=== PATIENT | male | born 1950 | race Caucasian/White ===

== ENCOUNTER 2016-07-20 03:52 | Emergency (ER) | payer MEDICARE, OTHER ==
[2016-07-20 05:15] LABS: Hematocrit 34 % (42-52); Hemoglobin 11.2 g/dl (14.0-18.0); Mean Corpuscular HGB Conc 33 g/dl (31-36); Mean Corpuscular Hemoglobin 30 pg (27-31); Mean Corpuscular Volume 90 fL (80-94); Mean Platelet Volume 9 um3 (7.4-10.4); Red Blood Count 3.77 10^6/ul (4.0-5.4); Red Cell Distribution Width 15 % (10.5-15); White Blood Count 6.1 10^3/ul (3.5-10.8)
[2016-07-20] MEDS ORDERED: Ondansetron INJ* 2 MG/ML VIAL IV ONE (05:17)
[2016-07-20] MEDS ORDERED: Morphine INJ* 4 MG/ML 1 ML SYRINGE IV ONE (05:17)
[2016-07-20 05:26] LABS: Albumin 3.8 g/dL (3.2-5.2); BUN/Creatinine Ratio 18.6 (8-20); C Reactive Protein 9.45 mg/L (< 5.00); Calcium 9.4 mg/dL (8.6-10.3); EGFR African American 99.6 (>60); EGFR Non-African American 77.4 (>60); Globulin 2.1 g/dL (2-4); Potassium 3.6 mmol/L (3.5-5.0); Total Bilirubin 0.4 mg/dL (0.2-1.0); Total Protein 5.9 g/dL (6.4-8.9)
[2016-07-20] MEDS ORDERED: NS 0.9% 1000 ML* 1,000 ML IV SCH (05:30)
[2016-07-20] MEDS ORDERED: oxyCODONE/Acetamin 5/325 MG* TAB PO ONE (07:42)
[2016-07-20 08:08] VITALS: BP 138/60
--- NOTE | 2016-07-20 08:12 | RAD ---
Indication: Frontal headaches. CT of the brain was performed without IV contrast. Ventricular structures are midline. No midline shift is noted. The extra-axial spaces are unremarkable. There is no evidence of intracranial mass or hemorrhage. No other high or low density lesions are identified. Mastoid air cells and paranasal sinuses are otherwise unremarkable. IMPRESSION: No intracranial mass or hemorrhage is noted.
--- NOTE | 2016-07-20 08:15 | RAD ---
Indication: Facial injury. CT of the facial bones was obtained in the axial plane. Sagittal and coronal reconstructed images were obtained. The visualized hyoid bone is unremarkable. The mandible demonstrates no fracture. Temporomandibular joints are normal location. The zygomatic arches are intact without evidence of fracture. Pterygoid plates are intact. The maxilla demonstrates no fracture. The orbits demonstrates no fracture. Paranasal sinuses are clear. Bilateral alvaro bullosa is noted. Mucus retention cyst is noted in the right maxillary sinus. IMPRESSION: No fracture of the facial bones are unremarkable. Minimal right mucosal thickening maxillary sinus with bilateral alvaro bullosa.
--- NOTE | 2016-07-20 08:17 | ED ---
Clarice Perez Alok, scribed for Yandel Knight MD on 07/20/16 at 0547 . Headache - HPI Summary HPI Summary: 66 y/o male presents to the ED with a frontal PRASAD located at the left forehead and left cheek bone. Pt states this PRASAD began as a mild PRASAD at 2100 worsening in intensity at 0100. Pt state that at worst his PRASAD registers at a 9 out of 10 in severity though it has improved somewhat since arriving to ED. Pt also notes a left eye ache as well as nausea earlier this evening though not currently. Pt also notes dental pain on the upper left side of his jaw, non-specific to any particular teeth. Pt denies fever, chills, vomit, neck pain, or ear pain. Pt denies trauma. The patient states that he last experienced similar 3 weeks ago following a sinus infection though with much less pain intensity. These symptoms were cleared up with augmentin antibiotics. PMHx includes multiple myeloma and diverticulitis. Pt is alergic to Statins and atovaquone. - History Of Current Complaint Chief Complaint: EDHeadache Stated Complaint: SEVERE HEAD PAIN ABOVE LEFT EYE Time Seen by Provider: 07/20/16 05:08 Hx Obtained From: Patient Onset/Duration: Gradual Onset, Started hours ago, Still Present, Worse Since - 0100 Initially Headache Was: Moderate Currently Pain Is: Current Pain Scale(0-10)= - 9, Moderate Timing: Constant Aggravating Factor: Nothing Allevating Factors: Nothing Associated Signs And Symptoms: Nausea - Allergies/Home Medications Allergies/Adverse Reactions: Allergies Allergy/AdvReac Type Severity Reaction Status Date / Time Shellfish Allergy Allergy Severe Anaphylatic Verified 07/20/16 04:00 Shock Atovaquone [From Mepron] Allergy Intermediate Rash And Verified 07/20/16 04:00 Itching Statins Allergy Intermediate myalgia Verified 07/20/16 04:00 PMH/Surg Hx/FS Hx/Imm Hx Endocrine/Hematology History: Reports: Hx Bone Marrow Disease - MULTIPLE MYELOMA , ON CHEMO Denies: Hx Diabetes Cardiovascular History: Denies: Hx Congestive Heart Failure, Hx Hypertension Respiratory History: Reports: Other Respiratory Problems/Disorders - OCCAS SOB R /T CHEMO (POMALYST) GI History: Reports: Hx Gastroesophageal Reflux Disease - HX OF , NO MEDS, Other GI Disorders - diverticulitis History: Denies: Hx Renal Disease Sensory History: Reports: Hx Contacts or Glasses - CONTACTS WILL WEAR GLASSES ON DOS Denies: Hx Hearing Aid Opthamlomology History: Reports: Hx Contacts or Glasses - CONTACTS WILL WEAR GLASSES ON DOS - Cancer History Cancer Type, Location and Year: 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 stem cell transplant 2014. mj placed in cervical spine. vein removal left leg Hx Anesthesia Reactions: No Infectious Disease History: No Infectious Disease History: Denies: Traveled Outside the [place] in Last 30 Days - Family History Known Family History: Positive: Other - No- Malignant Hypothermia Family History: son - ruptured diverticulitis. FHx of prostate CA (Father) - Social History Occupation: Employed Full-time Lives: With Family Alcohol Use: Rare Alcohol Amount: WINE 1 MONTH Hx Substance Use: No Substance Use Type: Reports: None Hx Tobacco Use: No Smoking Status (MU): Never Smoked Tobacco Have You Smoked in the Last Year: No Review of Systems Negative: Fever, Chills Positive: Other - Left eye ache Positive: Dental Pain - upper left side. Negative: Ear Ache Positive: Nausea. Negative: Vomiting Negative: Other - Neck Gottlieb Positive: Headache Psychological: Normal All Other Systems Reviewed And Are Negative: Yes Physical Exam Triage Information Reviewed: Yes Vital Signs On Initial Exam: Initial Vitals Temp Pulse Resp BP Pulse Ox 97.0 F 63 16 169/78 94 07/20/16 03:53 07/20/16 03:53 07/20/16 03:53 07/20/16 03:53 07/20/16 03:53 Vital Signs Reviewed: Yes Appearance: Positive: Well-Appearing, Pain Distress - Moderate Skin: Positive: Warm, Skin Color Reflects Adequate Perfusion, Dry Head/Face: Positive: Other - Frontal head tenderness left forehead and left side maxillofacial Eyes: Positive: EOMI, [place] ENT: Positive: Normal ENT inspection Neck: Positive: Supple, Nontender Respiratory/Lung Sounds: Positive: Clear to Auscultation, Breath Sounds Present Cardiovascular: Positive: RRR Abdomen Description: Positive: Nontender, Soft Bowel Sounds: Positive: Present Musculoskeletal: Positive: Normal, Strength/ROM Intact Neurological: Positive: Normal, Sensory/Motor Intact, Alert, Oriented to Person Place, Time, Other - Frontal head tenderness left forehead and left side maxillofacial Psychiatric: Positive: Affect/Mood Appropriate - [place] Coma Scale Coma Scale Total: 15 Diagnostics - Vital Signs Vital Signs Temp Pulse Resp BP Pulse Ox 07/20/16 03:55 97.0 F 63 16 169/78 94 07/20/16 03:53 97.0 F 63 16 169 94 - Laboratory Lab Results: Lab Results 07/20/16 07/20/16 07/20/16 Range/Units 05:06 05:06 05:06 WBC 6.1 (3.5-10.8) 10^3/ul RBC 3.77 L (4.0-5.4) 10^6/ul Hgb 11.2 L (14.0-18.0) g/dl Hct 34 L (42-52) % MCV 90 (80-94) fL MCH 30 (27-31) pg MCHC 33 (31-36) g/dl RDW 15 (10.5-15) % Plt Count 142 L (150-450) 10^3/ul MPV 9 (7.4-10.4) um3 Neut % (Auto) 81.8 (38-83) % Lymph % (Auto) 3.6 L (25-47) % [place] % (Auto) 12.9 H (1-9) % Eos % (Auto) 1.7 (0-6) % Baso % (Auto) 0 (0-2) % Absolute Neuts (auto) 5.0 (1.5-7.7) 10^3/ul Absolute Lymphs (auto) 0.2 L (1.0-4.8) 10^3/ul Absolute Monos (auto) 0.8 (0-0.8) 10^3/ul Absolute Eos (auto) 0.1 (0-0.6) 10^3/ul Absolute Basos (auto) 0 (0-0.2) 10^3/ul Absolute Nucleated RBC 0 10^3/ul Nucleated RBC % 0 APTT 26.3 (26.0-36.3) seconds Sodium 135 (133-145) mmol/L Potassium 3.6 (3.5-5.0) mmol/L Chloride 100 L (101-111) mmol/L Carbon Dioxide 27 (22-32) mmol/L Anion Gap 8 (2-11) mmol/L BUN 18 (6-24) mg/dL Creatinine 0.97 (0.67-1.17) mg/dL Est GFR ( Amer) 99.6 (>60) Est GFR (Non-Af Amer) 77.4 (>60) BUN/Creatinine Ratio 18.6 (8-20) Glucose 125 H (70-100) mg/dL Lactic Acid (0.5-2.0) mmol/L Calcium 9.4 (8.6-10.3) mg/dL Total Bilirubin 0.40 (0.2-1.0) mg/dL AST 23 (13-39) U/L ALT 14 (7-52) U/L Alkaline Phosphatase 80 (34-104) U/L C-Reactive Protein 9.45 H (< 5.00) mg/L Total Protein 5.9 L (6.4-8.9) g/dL Albumin 3.8 (3.2-5.2) g/dL Globulin 2.1 (2-4) g/dL Albumin/Globulin Ratio 1.8 (1-3) Lipase 23 (11.0-82.0) U/L 07/20/16 Range/Units 05:06 WBC (3.5-10.8) 10^3/ul RBC (4.0-5.4) 10^6/ul Hgb (14.0-18.0) g/dl Hct (42-52) % MCV (80-94) fL MCH (27-31) pg MCHC (31-36) g/dl RDW (10.5-15) % Plt Count (150-450) 10^3/ul MPV (7.4-10.4) um3 Neut % (Auto) (38-83) % Lymph % (Auto) (25-47) % [place] % (Auto) (1-9) % Eos % (Auto) (0-6) % Baso % (Auto) (0-2) % Absolute Neuts (auto) (1.5-7.7) 10^3/ul Absolute Lymphs (auto) (1.0-4.8) 10^3/ul Absolute Monos (auto) (0-0.8) 10^3/ul Absolute Eos (auto) (0-0.6) 10^3/ul Absolute Basos (auto) (0-0.2) 10^3/ul Absolute Nucleated RBC 10^3/ul Nucleated RBC % APTT (26.0-36.3) seconds Sodium (133-145) mmol/L Potassium (3.5-5.0) mmol/L Chloride (101-111) mmol/L Carbon Dioxide (22-32) mmol/L Anion Gap (2-11) mmol/L BUN (6-24) mg/dL Creatinine (0.67-1.17) mg/dL Est GFR ( Amer) (>60) Est GFR (Non-Af Amer) (>60) BUN/Creatinine Ratio (8-20) Glucose (70-100) mg/dL Lactic Acid 1.1 (0.5-2.0) mmol/L Calcium (8.6-10.3) mg/dL Total Bilirubin (0.2-1.0) mg/dL AST (13-39) U/L ALT (7-52) U/L Alkaline Phosphatase (34-104) U/L C-Reactive Protein (< 5.00) mg/L Total Protein (6.4-8.9) g/dL Albumin (3.2-5.2) g/dL Globulin (2-4) g/dL Albumin/Globulin Ratio (1-3) Lipase (11.0-82.0) U/L Result Diagrams: 07/20/16 05:06 07/20/16 05:06 Lab Statement: Any lab studies that have been ordered have been reviewed, and results considered in the medical decision making process. - CT Brain CT CT Interpretation: Positive (See Comments) - IMPRESSION: NO CT EVIDENCE OF ACUTE INFARCT, HEMORRHAGE, OR MASS EFFECT. NO ACUTE FRACTURE. CT Interpretation Completed By: Radiologist Maxillofacial CT CT Interpretation: Positive (See Comments) - IMPRESSION: MINIMAL TO MILD PARANASAL SINUS MUCOSAL THICKENING WITHOUT AIR FLUID LEVELS OR OSTEITIS. NO OSSEOUS EROSIONS. NO ACUTE FRATURE OR DISLOCATION. ORBITS ARE UNREMARKABLE. CT Interpretation Completed By: Radiologist Headache Course/Dx - Course Course Of Treatment: NO CRITICAL CARE TIME. Assessment/Plan: IMPROVED IN ED. DISCUSSED RESULTS WITH PATINENT/. PROBABLE SINUS PRESSURE HEADACHE. DISCHARGE HOME STABLE. - Diagnoses Provider Diagnoses: Headache Discharge - Discharge Plan Condition: Stable Disposition: HOME Patient Education Materials: Acute Headache (ED) Referrals: Digiovanna,Moi J, MD [Primary Care Provider] - Additional Instructions: FOLLOW UP WITH YOUR DOCTOR. RETURN TO THE EMERGENCY DEPARTMENT FOR ANY WORSENING OF YOUR CONDITION; pain, fever, you feel ill OR QUESTIONS OR CONCERNS. The documentation as recorded by the Clarice gonzalez Alok accurately reflects the service I personally performed and the decisions made by me, Yandel Knight MD.
== END 2016-07-20 08:04 | disposition home or self-care (01) ==
LOC: ED 03:52
DX: R51 Headache (principal); K08.89 Other specified disorders of teeth and supporting structures
CPT/HCPCS: 36415; 70450; 70486; 80053; 83605; 83690; 85025; 85730; 86140; 96374; 96375; 99283; A9270-GY; J2270; J2405

== ENCOUNTER 2016-10-23 20:35 | Inpatient (IN) | payer MEDICARE, OTHER ==
[~2016-10-23 20:35] MED LIST: Vancomycin(*) 1,250 MG in NS 0.9% 250 ML* 250 ML IVPB ONE
[2016-10-23] MEDS ORDERED: Acetaminophen TAB* 325 MG PO ONE (21:44)
[2016-10-23] MEDS ORDERED: NS 0.9% 1000 ML* 3,000 ML IV ONE (21:46)
[2016-10-23 22:15] LABS: Hematocrit 21 % (42-52); Mean Corpuscular HGB Conc 34 g/dl (31-36); Mean Corpuscular Hemoglobin 30 pg (27-31); Mean Corpuscular Volume 90 fL (80-94); Mean Platelet Volume 9 um3 (7.4-10.4); Red Blood Count 2.31 10^6/ul (4.0-5.4); Red Cell Distribution Width 17 % (10.5-15); White Blood Count 2.3 10^3/ul (3.5-10.8)
[2016-10-23 22:16] LABS: Comments Flag Yes
[2016-10-23 22:20] LABS: Add Diff/Slide Review? Slide Review Added
[2016-10-23 22:24] LABS: Albumin 3.1 g/dL (3.2-5.2); BUN/Creatinine Ratio 22.1 (8-20); C Reactive Protein 214.24 mg/L (< 5.00); EGFR Non-African American 101.1 (>60); Globulin 3.2 g/dL (2-4); Potassium 4.1 mmol/L (3.5-5.0); Total Bilirubin 0.4 mg/dL (0.2-1.0); Total Protein 6.3 g/dL (6.4-8.9)
[2016-10-23 22:25] LABS: Troponin I 0.02 ng/mL (<0.04)
[2016-10-23 22:36] LABS: Tear Drop Cells 2+
[2016-10-23 22:39] LABS: Add Path Review? YES
[2016-10-23 22:59] LABS: Eosinophils % 5 % (0-6); Immature Granulocytes 2 % (0-9); Neutrophil % 52 % (38-83); Reactive Lymph % 3 % (0-6)
[2016-10-23] MEDS ORDERED: Vancomycin(*) 1,000 MG in NS 0.9% 250 ML* 250 ML IVPB ONE (23:15)
[2016-10-23] MEDS ORDERED: Azithromycin IV(*) 500 MG in NS 0.9% 250 ML* 250 ML IVPB ONE (23:16)
[2016-10-23] MEDS ORDERED: Cefepime(*) 2 GM in NS 0.9% 50 ML* 50 ML IVPB ONE (23:16)
[2016-10-23] MEDS ORDERED: NS 0.9% 50 ML* 50 ML ONE (23:25)
[2016-10-23] MEDS ORDERED: CMCS: Melatonin (NF) 3 MG TAB PO PRN (23:45)
--- NOTE | 2016-10-23 23:56 | ED ---
Ernst Perez Alfonso, scribed for Miquel Acharya MD on 10/23/16 at 2146 . HPI Febrile Illness - HPI Summary HPI Summary: This patient is a 66 year old M [facility] accompanied by with a chief complaint of febrile illness since earlier tod. reports home temperatures of 101F, then 99F, and then 104F. Pt rates the pain 7/10 in severity. Symptoms aggravated and alleviated by nothing. Pt reports chills, diaphoresis, nausea, post nasal drip, productive cough (10 days), and mid back pain (chronic). Pt denies rhinorrhea, diarrhea, and dysuria. Pt reports he takes Zometa, Prednisone daily and it is his week of Pomalyst. Pt denies taking blood thinking medication. Pt reports IGG treatment today at [facility] in which everything went well. PMHx of stem cell transplant (2014) and multiple myeloma. - History of Current Complaint Chief Complaint: EDFever Time Seen by Provider: 10/23/16 21:12 Hx Obtained From: Patient, Family/Contour Sander - Onset/Duration: Started Hours Ago - Earlier today Timing: Constant Initial Severity: Moderate Current Severity: Moderate Pain Intensity: 7 Pain Scale Used: 0-10 Numeric Aggravating Factors: Nothing Alleviating Factors: Nothing Associated Signs and Symptoms: Other: - Pt reports chills, diaphoresis, nausea, post nasal drip, productive cough, and mid back pain (chronic). Pt denies rhinorrhea, diarrhea, and dysuria. - Allergy/Home Medications Allergies/Adverse Reactions: Allergies Allergy/AdvReac Type Severity Reaction Status Date / Time Shellfish Allergy Allergy Severe Anaphylatic Verified 10/23/16 21:36 Shock Atovaquone [From Mepron] Allergy Intermediate Rash And Verified 10/23/16 21:36 Itching Statins Allergy Intermediate myalgia Verified 10/23/16 21:36 PMH/Surg Hx/FS Hx/Imm Hx Endocrine/Hematology History: Reports: Hx Bone Marrow Disease - MULTIPLE MYELOMA , ON CHEMO Denies: Hx Diabetes Cardiovascular History: Denies: Hx Congestive Heart Failure, Hx Hypertension Respiratory History: Reports: Other Respiratory Problems/Disorders - OCCAS SOB R /T CHEMO (POMALYST) GI History: Reports: Hx Gastroesophageal Reflux Disease - HX OF , NO MEDS, Other GI Disorders - diverticulitis History: Denies: Hx Renal Disease Sensory History: Reports: Hx Contacts or Glasses - CONTACTS WILL WEAR GLASSES ON DOS Denies: Hx Hearing Aid Opthamlomology History: Reports: Hx Contacts or Glasses - CONTACTS WILL WEAR GLASSES ON DOS - Cancer History Cancer Type, Location and Year: 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 Stem cell transplant (2014) Hx Chemotherapy: Yes - Surgical History Surgery Procedure, Year, and Place: tonsilectomy. stem cell transplant 2014. mj placed in cervical spine. vein removal left leg Hx Anesthesia Reactions: No - Immunization History Date of Tetanus Vaccine: unk Date of Influenza Vaccine: unk Infectious Disease History: No Infectious Disease History: Denies: Traveled Outside the [place] in Last 30 Days - Family History Known Family History: Positive: Other - No- Malignant Hypothermia Family History: son - ruptured diverticulitis. FHx of prostate CA (Father) - Social History Alcohol Use: Rare Alcohol Amount: WINE 1 MONTH Hx Substance Use: No Substance Use Type: Reports: None Hx Tobacco Use: No Smoking Status (MU): Never Smoked Tobacco Have You Smoked in the Last Year: No Review of Systems Positive: Fever, Chills, Skin Diaphoresis ENT: Other - Positve post nasal drip; negative rhinorrhea. Positive: Cough - Productive cough since 10 days ago Positive: Nausea. Negative: Diarrhea Negative: dysuria Positive: Other - Positive mid back pain (chronic) All Other Systems Reviewed And Are Negative: Yes Physical Exam - Summary Physical Exam Summary: The patient is well-nourished in no acute distress and in no acute pain. The skin is warm to touch and diaphoretic. Skin turgor decreased. HEENT: The head is normocephalic and atraumatic. The pupils are equal and reactive. The conjunctivae are clear and without drainage. Nares are patent and without drainage. Mouth reveals dry mucous membranes and the throat is without erythema and exudate. The external ears are intact. The ear canals are patent and without drainage. The tympanic membranes are intact. Neck is supple with full range of motion and non-tender. There are no carotid bruits. There is no neck vein distension. Respiratory: Chest is non-tender. Lungs are breath sounds are symmetrical and equal. Rales in bibasilar area. Cardiovascular: Heart is regular rate and rhythm. There is no murmur or rub auscultated. There is no peripheral edema and pulses are symmetrical and equal. Abdomen: The abdomen is soft and non-tender. There are normal bowel sounds heard in all four quadrants and there is no organomegaly palpated. Musculoskeletal: There is no back pain noted. Extremities are non-tender with full range of motion. There is a 3 second capillary refill. There is no peripheral edema or calf tenderness elicited. Neurological: Patient is alert and oriented to person, place and time. The patient has symmetrical motor strength in all four extremities. Cranial nerves are grossly intact. Deep tendon reflexes are symmetrical and equal in all four extremities. Psychiatric: The patient has an appropriate affect and does not exhibit any anxiety or depression. Triage Information Reviewed: Yes Vital Signs On Initial Exam: Initial Vitals Temp Pulse Resp BP Pulse Ox 101.6 F 90 18 140/57 97 10/23/16 21:13 10/23/16 21:13 10/23/16 21:13 10/23/16 21:13 10/23/16 21:13 Vital Signs Reviewed: Yes - [place] Coma Scale Coma Scale Total: 15 Diagnostics - Vital Signs Vital Signs Temp Pulse Resp BP Pulse Ox 10/23/16 21:31 103.2 F 90 18 150/59 96 10/23/16 21:13 101.6 F 90 18 140/57 97 - Laboratory Lab Results: Lab Results 10/23/16 10/23/16 10/23/16 Range/Units 22:00 22:00 22:00 WBC 2.3 L (3.5-10.8) 10^3/ul RBC 2.31 L (4.0-5.4) 10^6/ul Hgb 7.0 L (14.0-18.0) g/dl Hct 21 L (42-52) % MCV 90 (80-94) fL MCH 30 (27-31) pg MCHC 34 (31-36) g/dl RDW 17 H (10.5-15) % Plt Count 25 L (150-450) 10^3/ul MPV 9 (7.4-10.4) um3 Immature Gran % (Auto) 2 (0-9) % Neut % (Auto) 46.8 (38-83) % Lymph % (Auto) 13.6 L (25-47) % [place] % (Auto) 36.0 H (1-9) % Eos % (Auto) 3.0 (0-6) % Baso % (Auto) 0.6 (0-2) % Absolute Neuts (auto) 1.1 L (1.5-7.7) 10^3/ul Absolute Lymphs (auto) 0.3 L (1.0-4.8) 10^3/ul Absolute Monos (auto) 0.8 (0-0.8) 10^3/ul Absolute Eos (auto) 0.1 (0-0.6) 10^3/ul Absolute Basos (auto) 0 (0-0.2) 10^3/ul Absolute Nucleated RBC 0 10^3/ul Neutrophils % 52 (38-83) % Band Neutrophils % 2 (0-8) % Lymphocytes % 12 L (25-47) % Reactive Lymphs % 3 (0-6) % Monocytes % 26 H (0-13) % Eosinophils % 5 (0-6) % Nucleated RBC % 0.1 Nucleated RBCs/100 WBC 1 H (0-0) Differential Comment Normal RBC Morphology Not Reportable Tear Drop Cells 2+ Hem Pathologist Commnt Pending INR (Anticoag Therapy) 1.03 (0.89-1.11) APTT 127.3 H* (26.0-36.3) seconds Sodium 129 L (133-145) mmol/L Potassium 4.1 (3.5-5.0) mmol/L Chloride 93 L (101-111) mmol/L Carbon Dioxide 29 (22-32) mmol/L Anion Gap 7 (2-11) mmol/L BUN 17 (6-24) mg/dL Creatinine 0.77 (0.67-1.17) mg/dL Est GFR ( Amer) 130.0 (>60) Est GFR (Non-Af Amer) 101.1 (>60) BUN/Creatinine Ratio 22.1 H (8-20) Glucose 123 H (70-100) mg/dL Lactic Acid (0.5-2.0) mmol/L Calcium 9.0 (8.6-10.3) mg/dL Total Bilirubin 0.40 (0.2-1.0) mg/dL AST 69 H (13-39) U/L ALT 61 H (7-52) U/L Alkaline Phosphatase 237 H (34-104) U/L Troponin I 0.02 (<0.04) ng/mL C-Reactive Protein 214.24 H (< 5.00) mg/L Total Protein 6.3 L (6.4-8.9) g/dL Albumin 3.1 L (3.2-5.2) g/dL Globulin 3.2 (2-4) g/dL Albumin/Globulin Ratio 1.0 (1-3) 10/23/16 Range/Units 22:00 WBC (3.5-10.8) 10^3/ul RBC (4.0-5.4) 10^6/ul Hgb (14.0-18.0) g/dl Hct (42-52) % MCV (80-94) fL MCH (27-31) pg MCHC (31-36) g/dl RDW (10.5-15) % Plt Count (150-450) 10^3/ul MPV (7.4-10.4) um3 Immature Gran % (Auto) (0-9) % Neut % (Auto) (38-83) % Lymph % (Auto) (25-47) % [place] % (Auto) (1-9) % Eos % (Auto) (0-6) % Baso % (Auto) (0-2) % Absolute Neuts (auto) (1.5-7.7) 10^3/ul Absolute Lymphs (auto) (1.0-4.8) 10^3/ul Absolute Monos (auto) (0-0.8) 10^3/ul Absolute Eos (auto) (0-0.6) 10^3/ul Absolute Basos (auto) (0-0.2) 10^3/ul Absolute Nucleated RBC 10^3/ul Neutrophils % (38-83) % Band Neutrophils % (0-8) % Lymphocytes % (25-47) % Reactive Lymphs % (0-6) % Monocytes % (0-13) % Eosinophils % (0-6) % Nucleated RBC % Nucleated RBCs/100 WBC (0-0) Differential Comment Normal RBC Morphology Tear Drop Cells Hem Pathologist Commnt INR (Anticoag Therapy) (0.89-1.11) APTT (26.0-36.3) seconds Sodium (133-145) mmol/L Potassium (3.5-5.0) mmol/L Chloride (101-111) mmol/L Carbon Dioxide (22-32) mmol/L Anion Gap (2-11) mmol/L BUN (6-24) mg/dL Creatinine (0.67-1.17) mg/dL Est GFR ( Amer) (>60) Est GFR (Non-Af Amer) (>60) BUN/Creatinine Ratio (8-20) Glucose (70-100) mg/dL Lactic Acid 2.2 H* (0.5-2.0) mmol/L Calcium (8.6-10.3) mg/dL Total Bilirubin (0.2-1.0) mg/dL AST (13-39) U/L ALT (7-52) U/L Alkaline Phosphatase (34-104) U/L Troponin I (<0.04) ng/mL C-Reactive Protein (< 5.00) mg/L Total Protein (6.4-8.9) g/dL Albumin (3.2-5.2) g/dL Globulin (2-4) g/dL Albumin/Globulin Ratio (1-3) Result Diagrams: 10/23/16 22:00 10/23/16 22:00 Lab Statement: Any lab studies that have been ordered have been reviewed, and results considered in the medical decision making process. - Radiology CXR Radiology Interpretation Completed By: ED Physician - Questionable right lower lobe infiltrate. - EKG 2241 Cardiac Rate: NL - BPM 86 EKG Rhythm: Sinus Rhythm EKG Interpretation: NSR, no ST elevation, and poor r-wave progression. Re-Evaluation - Re-Evaluation First Eval Re-Evaluation Time: 23:08 Comment: Patient and prefer admission at [facility] to transfer. Course/Dx - Course Assessment/Plan: 66 year old M presenting to [facility] accompanied by with a chief complaint of febrile illness since earlier tod. reports home temperatures of 101F, then 99F, and then 104F. Pt rates the pain 7/10 in severity. Symptoms aggravated and alleviated by nothing. Pt reports chills, diaphoresis, nausea, post nasal drip, productive cough (10 days), and mid back pain (chronic). Pt denies rhinorrhea, diarrhea, and dysuria. Pt reports he takes Zometa, Prednisone daily and it is his week of Pomalyst. Pt denies taking blood thinking medication. Pt reports IGG treatment today at [facility] in which everything went well. PMHx of stem cell transplant (2015) and multiple myeloma. CXR reveals questionable right lower lobe infiltrate. An EKG reveals NSR, and poor r-wave progression. Consulted Dr. Alston (Hematology and Oncology at [facility]) who recommends admission to [facility] or transfer to [facility]. Patient and prefer admission at [facility]. Consulted Dr. Rodriguez (hospitalist) who agrees to admit. Patient given vancomycin for possibility of port infection. Patient will be admitted with follow up from Dr. Rodriguez. Pt and are agreeable with this plan. 30 minutes of critical care time. - Febrile Illness Differential Diagnoses: Bacteremia, Pneumonia, Other: - neutropenic fever, line sepsis, - Diagnoses Provider Diagnoses: Community acquired pneumonia, Neutropenic, Febrile - Provider Notifications Discussed Care Of Patient With: Carlie Alston MD Time Discussed With Above Provider: 23:00 Instructed by Provider To: Other - Consulted Dr. Alston (Hematology and Oncology at [facility]) who recommends admission to [facility] or transfer to [facility]. Consulted Dr. Rodriguez (hospitalist) at [address] [place] [address] agrees to admit. - Critical Care Time Critical Care Time: 30-74 min - 30 minutes Discharge - Discharge Plan Condition: Stable Disposition: ADMITTED TO [facility] Referrals: Moi Seymour MD [Primary Care Provider] - The documentation as recorded by the Ernst gonzalez Alfonso accurately reflects the service I personally performed and the decisions made by me, Miquel Acharya MD.
[2016-10-23 23:59] LABS: Urine Bilirubin Negative (Negative); Urine Glucose Negative (Negative); Urine Nitrite Negative (Negative)
--- NOTE | 2016-10-23 23:59 | HP ---
H&P (Free Text) History and Physical: PCP: Caroline Seymour MD Date/Time of Evaluation: 10/23/2016 2330 CC: fever, cough HPI: Mr Kennedy is a 66YO male HX multiple myeloma s/p stem cell transplant who was in remission until unfortunately developing a perforated diverticulitis in December 2015 requiring his chemo-suppressive regimen to be held for 6 weeks allowing a recurrence which has yet to be brought back to remission. He reports developing a cough 2 week ago productive of thin clear sputum. His PCP placed him on an azithromycin Z-conner which he took for 2 days when his oncologist changed it to a 10 day course of levofloxacin which he completed 3 days ago. He went to [facility] for infusion of Privigen IVIG returning home and doing well until a fever of 101F developed around 1700. He called his oncologist's office who advised him present for evaluation. He does report having 2 separate bed clothes soaking night sweats last night, but otherwise denies chest pain, SOB, N /V, abdominal pain, B/U/F of urine, sore throat, earache, headache, or rash/ open wound. He had some tenderness in the area of his L chest port ~2weeks ago that has since resolved and was never associated with erythema or other finding. PMedHx multiple myeloma cervical spondylosis perforated diverticulitis s/p colon resection w/ colostomy Ambulatory Orders Nursing to reconcile. Aspirin [Aspirin Adult Low Dose] 325 mg PO DAILY 05/24/15 Dexamethasone TAB* [Decadron TAB*] 4 mg PO SEE INSTRUCTIONS 05/24/15 Folic Acid TAB* [Folvite TAB*] 1 mg PO DAILY 05/24/15 Multiple Vitamin [Multivitamins] 1 cap PO DAILY 05/24/15 Sildenafil Citrate [Viagra] 50 - 100 mg PO ACHS PRN 05/24/15 Carfilzomib [Kyprolis] 54 mg IV SEE INSTRUCTIONS 10/30/15 Docusate Sodium [Colace] 1 cap PO DAILY PRN 10/30/15 Ondansetron TAB* [Zofran Tab*] 16 mg PO SEE INSTRUCTIONS 10/30/15 Pomalidomide 4 mg PO DAILY 10/30/15 ValACYclovir (*) [Valtrex 500 mg (*)] 500 mg PO DAILY 10/30/15 Zoledronic Acid* [Zometa] 4 mg IV SEE INSTRUCTIONS 10/30/15 Amoxicillin/Clavulanate TAB* [Augmentin TAB 875*] 875 mg PO BID #10 tab Allergies Shellfish Allergy Allergy (Severe, Verified 10/23/16 21:36) Anaphylatic Shock Atovaquone [From Mepron] Allergy (Intermediate, Verified 10/23/16 21:36) Rash And Itching Statins Allergy (Intermediate, Verified 10/23/16 21:36) myalgia PSurgHx cervical surgery stem-cell transplant lower extremity saphenous vein closure tonsillectomy cholecystectomy colon resection w/ colostomy for perforated diverticulitis SocHx: no tobacco, alcohol, or recreational drug use; lives with his ; full code status FamHx: positive for prostate CA ROS: as above, otherwise reviewed and all were negative Constitutional: NAD, normally developed, well-nourished white male vitals: Vital Signs Temp 39.6 C 10/23/16 21:31 Pulse 90 10/23/16 21:31 Resp 18 10/23/16 21:31 BP 150/59 10/23/16 21:31 Pulse Ox 95 10/23/16 23:09 Intake & Output 10/22/16 10/23/16 10/23/16 23:59 11:59 23:59 Weight 77.111 kg HEENM: atraumatic; sclera/conjunctiva: non-icteric/clear; hearing: clinically intact; oropharynx: clear, mucosa moist Neck: soft tissue: non-tender, no nuchal rigidity; thyroid: normal Pulmonary: clear to auscultation bilaterally, good aeration, no accessory muscle use CV: RR/RR, normal S1S2, no carotid bruit, no jugular venous distention, 2+ B DP/ PT, no edema Abdominal: soft, non-distended, non-tender, no rebound/guarding/rigidity, normoactive bowel sounds, no hepatosplenomegaly or masses, no costovertebral angle tenderness Musculoskeletal: general: grossly intact; gait: stable Integumental: normal appearance and texture of exposed skin; L chest port well healed without erythema, induration, tenderness, or warmth Psychiatric orientation: AA&O to PPS affect: anxious mood: pleasant eye contact: good content: reliable responses: timely insight: good Testing: Lab Results 10/23/16 10/23/16 10/23/16 Range/Units 22:00 22:00 22:00 WBC 2.3 L (3.5-10.8) 10^3/ul RBC 2.31 L (4.0-5.4) 10^6/ul Hgb 7.0 L (14.0-18.0) g/dl Hct 21 L (42-52) % MCV 90 (80-94) fL MCH 30 (27-31) pg MCHC 34 (31-36) g/dl RDW 17 H (10.5-15) % Plt Count 25 L (150-450) 10^3/ul MPV 9 (7.4-10.4) um3 Immature Gran % (Auto) 2 (0-9) % Neut % (Auto) 46.8 (38-83) % Lymph % (Auto) 13.6 L (25-47) % [place] % (Auto) 36.0 H (1-9) % Eos % (Auto) 3.0 (0-6) % Baso % (Auto) 0.6 (0-2) % Absolute Neuts (auto) 1.1 L (1.5-7.7) 10^3/ul Absolute Lymphs (auto) 0.3 L (1.0-4.8) 10^3/ul Absolute Monos (auto) 0.8 (0-0.8) 10^3/ul Absolute Eos (auto) 0.1 (0-0.6) 10^3/ul Absolute Basos (auto) 0 (0-0.2) 10^3/ul Absolute Nucleated RBC 0 10^3/ul Neutrophils % 52 (38-83) % Band Neutrophils % 2 (0-8) % Lymphocytes % 12 L (25-47) % Reactive Lymphs % 3 (0-6) % Monocytes % 26 H (0-13) % Eosinophils % 5 (0-6) % Nucleated RBC % 0.1 Nucleated RBCs/100 WBC 1 H (0-0) Differential Comment Normal RBC Morphology Not Reportable Tear Drop Cells 2+ Hem Pathologist Commnt Pending INR (Anticoag Therapy) 1.03 (0.89-1.11) APTT 127.3 H* (26.0-36.3) seconds Sodium 129 L (133-145) mmol/L Potassium 4.1 (3.5-5.0) mmol/L Chloride 93 L (101-111) mmol/L Carbon Dioxide 29 (22-32) mmol/L Anion Gap 7 (2-11) mmol/L BUN 17 (6-24) mg/dL Creatinine 0.77 (0.67-1.17) mg/dL Est GFR ( Amer) 130.0 (>60) Est GFR (Non-Af Amer) 101.1 (>60) BUN/Creatinine Ratio 22.1 H (8-20) Glucose 123 H (70-100) mg/dL Lactic Acid (0.5-2.0) mmol/L Calcium 9.0 (8.6-10.3) mg/dL Total Bilirubin 0.40 (0.2-1.0) mg/dL AST 69 H (13-39) U/L ALT 61 H (7-52) U/L Alkaline Phosphatase 237 H (34-104) U/L Troponin I 0.02 (<0.04) ng/mL C-Reactive Protein 214.24 H (< 5.00) mg/L Total Protein 6.3 L (6.4-8.9) g/dL Albumin 3.1 L (3.2-5.2) g/dL Globulin 3.2 (2-4) g/dL Albumin/Globulin Ratio 1.0 (1-3) // Range/Units 22:00 WBC (3.5-10.8) 10^3/ul RBC (4.0-5.4) 10^6/ul Hgb (14.0-18.0) g/dl Hct (42-52) % MCV (80-94) fL MCH (27-31) pg MCHC (31-36) g/dl RDW (10.5-15) % Plt Count (150-450) 10^3/ul MPV (7.4-10.4) um3 Immature Gran % (Auto) (0-9) % Neut % (Auto) (38-83) % Lymph % (Auto) (25-47) % [place] % (Auto) (1-9) % Eos % (Auto) (0-6) % Baso % (Auto) (0-2) % Absolute Neuts (auto) (1.5-7.7) 10^3/ul Absolute Lymphs (auto) (1.0-4.8) 10^3/ul Absolute Monos (auto) (0-0.8) 10^3/ul Absolute Eos (auto) (0-0.6) 10^3/ul Absolute Basos (auto) (0-0.2) 10^3/ul Absolute Nucleated RBC 10^3/ul Neutrophils % (38-83) % Band Neutrophils % (0-8) % Lymphocytes % (25-47) % Reactive Lymphs % (0-6) % Monocytes % (0-13) % Eosinophils % (0-6) % Nucleated RBC % Nucleated RBCs/100 WBC (0-0) Differential Comment Normal RBC Morphology Tear Drop Cells Hem Pathologist Commnt INR (Anticoag Therapy) (0.89-1.11) APTT (26.0-36.3) seconds Sodium (133-145) mmol/L Potassium (3.5-5.0) mmol/L Chloride (101-111) mmol/L Carbon Dioxide (22-32) mmol/L Anion Gap (2-11) mmol/L BUN (6-24) mg/dL Creatinine (0.67-1.17) mg/dL Est GFR ( Amer) (>60) Est GFR (Non-Af Amer) (>60) BUN/Creatinine Ratio (8-20) Glucose (70-100) mg/dL Lactic Acid 2.2 H* (0.5-2.0) mmol/L Calcium (8.6-10.3) mg/dL Total Bilirubin (0.2-1.0) mg/dL AST (13-39) U/L ALT (7-52) U/L Alkaline Phosphatase (34-104) U/L Troponin I (<0.04) ng/mL C-Reactive Protein (< 5.00) mg/L Total Protein (6.4-8.9) g/dL Albumin (3.2-5.2) g/dL Globulin (2-4) g/dL Albumin/Globulin Ratio (1-3) ECG, personally reviewed: NSR rate 86, no ischemia CXR, personally reviewed: chronic change R base, port L chest; no acute finding Impression: 66M presenting with cough and fever after initial chemoTX earlier today at [facility] for multiple myeloma DIAGNOSIS & PLAN Primary fever ? origin : IV vancomycin, cefepime, & azithromycin to cover for potential port infection vs CAP : blood x2 (one set from port), sputum, & urine CXs : IVFs : supportive care multiple myeloma : s/p stem cell transplant : pancytopenia w/o neutropenia (ANC 1.1) : started initial chemoTX today at [facility] for recurrence : continue outpatient oncology follow up Admission Rational: observation for initiation of ABX for fever ? origin DVTp: SCDs, no heparin 2nd platelet count of 25k Code Status: full HCP:
[2016-10-24] MEDS: Azithromycin IV(*) 500 MG in NS 0.9% 250 ML* 250 ML IVPB SCH (00:46)
[2016-10-24] MEDS ORDERED: Zolpidem TAB* 10 MG PO PRN (00:51)
[2016-10-24] MEDS ORDERED: oxyCODONE TAB* 5 MG TAB ONE (01:01)
[2016-10-24] MEDS: oxyCODONE TAB* 5 MG TAB PO PRN ×4 (01:03→20:24)
[2016-10-24] MEDS: NS 0.9% 1000 ML* 1,000 ML IV SCH ×4 (02:25→15:51)
[2016-10-24] MEDS ORDERED: Vancomycin per Pharmacy* NOTE FOLLOW UP PRN (02:27)
[2016-10-24] MEDS: ValACYclovir (*) 500 MG TAB PO SCH ×2 (02:54→20:05)
[2016-10-24 04:20] LABS: Hematocrit 19 % (42-52); Mean Corpuscular HGB Conc 33 g/dl (31-36); Mean Corpuscular Hemoglobin 30 pg (27-31); Mean Corpuscular Volume 91 fL (80-94); Mean Platelet Volume 9 um3 (7.4-10.4); Red Blood Count 2.06 10^6/ul (4.0-5.4); Red Cell Distribution Width 18 % (10.5-15); White Blood Count 1.8 10^3/ul (3.5-10.8)
[2016-10-24 04:26] LABS: Comments Flag Yes
[2016-10-24 04:27] LABS: Add Diff/Slide Review? Manual Diff Added; Hemoglobin 6.2 g/dl (14.0-18.0)
[2016-10-24 04:33] LABS: Albumin 2.6 g/dL (3.2-5.2); Calcium 7.8 mg/dL (8.6-10.3); Direct Bilirubin 0.2 mg/dL (0.03-0.18); EGFR African American 158.1 (>60); EGFR Non-African American 122.9 (>60); Globulin 2.7 g/dL (2-4); Indirect Bilirubin 0.3 mg/dL (0.3-1.0); Potassium 4.1 mmol/L (3.5-5.0); Total Bilirubin 0.5 mg/dL (0.2-1.0); Total Protein 5.3 g/dL (6.4-8.9)
[2016-10-24] MEDS: Ondansetron INJ* 2 MG/ML VIAL IV PRN (04:33)
[2016-10-24] MEDS ORDERED: Cefepime(*) 1 GM in NS 0.9% 50 ML* 50 ML IVPB SCH ×2 (06:00→12:00)
[2016-10-24] MEDS: Omeprazole CAP* 20 MG PO SCH (06:03)
[2016-10-24] MEDS: Aspirin EC TAB* 325 MG PO SCH (07:53)
[2016-10-24] MEDS: Docusate CAP* 100 MG PO SCH ×2 (07:53→20:06)
[2016-10-24] MEDS: guaiFENesin ER TAB 600 MG PO SCH ×2 (07:54→20:06)
[2016-10-24] MEDS: Cefepime(*) 1 GM in NS 0.9% 50 ML* 50 ML IVPB SCH ×2 (07:54→15:51)
--- NOTE | 2016-10-24 08:26 | RAD ---
INDICATION: Cough, fever, pneumonia. Improvement with antibiotics for the last 2 weeks. Multiple myeloma. COMPARISON: December 10, 2015 chest radiograph and December 08, 2015 CT abdomen. TECHNIQUE: Dual energy PA and routine lateral views of the chest were obtained. REPORT: Tip of LEFT chest port at level of superior vena cava directed central. Minimal linear atelectasis at the LEFT mid and lower lung zone. No alveolar consolidation concerning for pneumonia. Upper normal heart size. Unremarkable central pulmonary vasculature and mediastinal contours. Chronic subtle osteolytic lesions visualized at the distal LEFT clavicle corresponding with history of multiple myeloma. No thoracic fracture visualized. IMPRESSION: No compelling evidence for pneumonia or other significant acute intrathoracic process.
[2016-10-24] MEDS: Vancomycin(*) 1,250 MG in NS 0.9% 250 ML* 250 ML IVPB SCH ×2 (11:22→18:01)
--- NOTE | 2016-10-24 12:56 | PN ---
Subjective Date of Service: 10/24/16 Interval History: Mr. Kennedy states that he is feeling moderately better. His cough is less frequent and he has not had a fever since last night; however he remains very weak. He denies other complaint including chest pain, SOB, nausea, or abdominal pain. Objective Active Medications: Acetaminophen (Tylenol Tab*) 650 mg PO Q6H PRN Aspirin (Ecotrin Ec Tab*) 325 mg PO DAILY ABRIL Cetirizine HCl (Zyrtec*) 10 mg PO QPM ABRIL Docusate Sodium (Colace Cap*) 200 mg PO BID ABRIL Guaifenesin (Mucinex*) 600 mg PO BID ABRIL Sodium Chloride (Ns 0.9% 1000 Ml*) 1,000 mls @ 125 mls/hr IV PER RATE ABRIL Sodium Chloride (Ns 0.9% 1000 Ml*) 1,000 mls @ 0 mls/hr IV WIDE OPEN ABRIL Azithromycin 500 mg/ Sodium (Chloride) 250 mls @ 250 mls/hr IVPB Q24H ABRIL Vancomycin HCl 1,250 mg/ (Sodium Chloride) 250 mls @ 166.667 mls/hr IVPB Q8H ABRIL Cefepime HCl 1 gm/ Sodium (Chloride) 50 mls @ 100 mls/hr IVPB Q8H ABRIL Melatonin (Melatonin (Nf)) 3 mg PO BEDTIME PRN; Protocol Mometasone Furoate (Asmanex 220 Mcg Mdi *) 2 puff INH QPM ABRIL Omeprazole (Prilosec Cap*) 20 mg PO DAILY@0600 ABRIL Ondansetron HCl (Zofran Inj*) 4 mg IV Q6H PRN Oxycodone HCl (Roxycodone Tab*) 5 mg PO Q4H PRN Pharmacy Consult (Vancomycin Per Pharmacy*) 1 note FOLLOW UP . PRN Pharmacy Profile Note (Vancomycin Trough Check) 1 note FOLLOW UP 0300 ONE Valacyclovir HCl (Valtrex 500 Mg (*)) 500 mg PO BEDTIME ABRIL Zolpidem Tartrate (Ambien Tab*) 10 mg PO BEDTIME PRN Vital Signs 10/24/16 10/24/16 10/24/16 00:19 01:03 02:58 Temperature 97.6 F Pulse Rate 76 Respiratory 16 16 12 Rate Blood Pressure 120/56 (mmHg) O2 Sat by Pulse 98 Oximetry 10/24/16 10/24/16 10/24/16 06:03 07:59 08:00 Temperature 98.5 F Pulse Rate 77 Respiratory 18 18 18 Rate Blood Pressure 122/51 (mmHg) O2 Sat by Pulse 96 96 Oximetry 10/24/16 08:03 Temperature Pulse Rate Respiratory 18 Rate Blood Pressure (mmHg) O2 Sat by Pulse Oximetry Oxygen Devices in Use Now: None Appearance: Male lying in bed in NAD Eyes: No Scleral Icterus Ears/Nose/Mouth/Throat: Mucous Membranes Moist Neck: NL Appearance and Movements; NL JVP, Trachea Midline Respiratory: Symmetrical Chest Expansion and Respiratory Effort, Clear to Auscultation Cardiovascular: NL Sounds; No Murmurs; No JVD, No Edema Abdominal: NL Sounds; No Tenderness; No Distention Lymphatic: No Cervical Adenopathy Extremities: No Edema Skin: No Rash or Ulcers Neurological: Alert and Oriented x 3, NL Muscle Strength and Tone Nutrition: Taking PO's Result Diagrams: 10/24/16 04:10 10/24/16 04:10 Additional Lab and Data: Lab Results 10/23/16 10/23/16 10/23/16 Range/Units 22:00 22:00 22:00 WBC 2.3 L (3.5-10.8) 10^3/ul RBC 2.31 L (4.0-5.4) 10^6/ul Hgb 7.0 L (14.0-18.0) g/dl Hct 21 L (42-52) % MCV 90 (80-94) fL MCH 30 (27-31) pg MCHC 34 (31-36) g/dl RDW 17 H (10.5-15) % Plt Count 25 L (150-450) 10^3/ul MPV 9 (7.4-10.4) um3 Immature Gran % (Auto) 2 (0-9) % Neut % (Auto) 46.8 (38-83) % Lymph % (Auto) 13.6 L (25-47) % [place] % (Auto) 36.0 H (1-9) % Eos % (Auto) 3.0 (0-6) % Baso % (Auto) 0.6 (0-2) % Absolute Neuts (auto) 1.1 L (1.5-7.7) 10^3/ul Absolute Lymphs (auto) 0.3 L (1.0-4.8) 10^3/ul Absolute Monos (auto) 0.8 (0-0.8) 10^3/ul Absolute Eos (auto) 0.1 (0-0.6) 10^3/ul Absolute Basos (auto) 0 (0-0.2) 10^3/ul Absolute Nucleated RBC 0 10^3/ul Neutrophils % 52 (38-83) % Band Neutrophils % 2 (0-8) % Lymphocytes % 12 L (25-47) % Reactive Lymphs % 3 (0-6) % Monocytes % 26 H (0-13) % Eosinophils % 5 (0-6) % Nucleated RBC % 0.1 Nucleated RBCs/100 WBC 1 H (0-0) Differential Comment Normal RBC Morphology Not Reportable Tear Drop Cells 2+ Hem Pathologist Commnt Pending INR (Anticoag Therapy) 1.03 (0.89-1.11) APTT 127.3 H* (26.0-36.3) seconds Sodium 129 L (133-145) mmol/L Potassium 4.1 (3.5-5.0) mmol/L Chloride 93 L (101-111) mmol/L Carbon Dioxide 29 (22-32) mmol/L Anion Gap 7 (2-11) mmol/L BUN 17 (6-24) mg/dL Creatinine 0.77 (0.67-1.17) mg/dL Est GFR ( Amer) 130.0 (>60) Est GFR (Non-Af Amer) 101.1 (>60) BUN/Creatinine Ratio 22.1 H (8-20) Glucose 123 H (70-100) mg/dL Lactic Acid (0.5-2.0) mmol/L Calcium 9.0 (8.6-10.3) mg/dL Total Bilirubin 0.40 (0.2-1.0) mg/dL AST 69 H (13-39) U/L ALT 61 H (7-52) U/L Alkaline Phosphatase 237 H (34-104) U/L Troponin I 0.02 (<0.04) ng/mL C-Reactive Protein 214.24 H (< 5.00) mg/L Total Protein 6.3 L (6.4-8.9) g/dL Albumin 3.1 L (3.2-5.2) g/dL Globulin 3.2 (2-4) g/dL Albumin/Globulin Ratio 1.0 (1-3) 10/23/16 Range/Units 22:00 WBC (3.5-10.8) 10^3/ul RBC (4.0-5.4) 10^6/ul Hgb (14.0-18.0) g/dl Hct (42-52) % MCV (80-94) fL MCH (27-31) pg MCHC (31-36) g/dl RDW (10.5-15) % Plt Count (150-450) 10^3/ul MPV (7.4-10.4) um3 Immature Gran % (Auto) (0-9) % Neut % (Auto) (38-83) % Lymph % (Auto) (25-47) % [place] % (Auto) (1-9) % Eos % (Auto) (0-6) % Baso % (Auto) (0-2) % Absolute Neuts (auto) (1.5-7.7) 10^3/ul Absolute Lymphs (auto) (1.0-4.8) 10^3/ul Absolute Monos (auto) (0-0.8) 10^3/ul Absolute Eos (auto) (0-0.6) 10^3/ul Absolute Basos (auto) (0-0.2) 10^3/ul Absolute Nucleated RBC 10^3/ul Neutrophils % (38-83) % Band Neutrophils % (0-8) % Lymphocytes % (25-47) % Reactive Lymphs % (0-6) % Monocytes % (0-13) % Eosinophils % (0-6) % Nucleated RBC % Nucleated RBCs/100 WBC (0-0) Differential Comment Normal RBC Morphology Tear Drop Cells Hem Pathologist Commnt INR (Anticoag Therapy) (0.89-1.11) APTT (26.0-36.3) seconds Sodium (133-145) mmol/L Potassium (3.5-5.0) mmol/L Chloride (101-111) mmol/L Carbon Dioxide (22-32) mmol/L Anion Gap (2-11) mmol/L BUN (6-24) mg/dL Creatinine (0.67-1.17) mg/dL Est GFR ( Amer) (>60) Est GFR (Non-Af Amer) (>60) BUN/Creatinine Ratio (8-20) Glucose (70-100) mg/dL Lactic Acid 2.2 H* (0.5-2.0) mmol/L Calcium (8.6-10.3) mg/dL Total Bilirubin (0.2-1.0) mg/dL AST (13-39) U/L ALT (7-52) U/L Alkaline Phosphatase (34-104) U/L Troponin I (<0.04) ng/mL C-Reactive Protein (< 5.00) mg/L Total Protein (6.4-8.9) g/dL Albumin (3.2-5.2) g/dL Globulin (2-4) g/dL Albumin/Globulin Ratio (1-3) Microbiology and Other Data: Microbiology 10/23/16 23:50 Legionella Urinary Antigen - Final Urine Negative Legionella Streptococcus pneumoniae Ag Screen - Final Negative S. pneumo Antigen Assess/Plan/Problems-Billing Assessment: Mr. Kennedy is a 66 yo male with a PMH of multiple myeloma who was admitted on 10/23/16 with neutropenic fever. - Patient Problems (1) Neutropenic fever SNOMED Code(s): 009844438 Comment: - Tmax 103.2 last night. WBC down to 1.8, ANC 0.8. CRP 214.24. - Etiology unclear. UA negative, cxray negative, BC pending. - Continue cefepime and vancomycin. Had completed a course of levaquin outpatient for cough (no fever at that point). (2) Multiple myeloma Comment: - Under the care of Dr Alston at [facility]. Last treatment on , of daratumumab and pomalyst. - Has been progressively neutropenic. (3) Colostomy in place Comment: - History of perforated diverticulitis s/p colon resection. (4) DVT prophylaxis Comment: - SCDs only, no heparin secondary to thrombocytopenia. (5) Full code status Status and Disposition: Inpatient with expected LOS > 2 days. Anticipate discharge to home when medically stable.
[2016-10-24] MEDS: Acetaminophen TAB* 325 MG PO PRN (16:56)
[2016-10-24] MEDS: Cetirizine* 10 MG TAB PO SCH ×2 (18:01→18:10)
[2016-10-24] MEDS: Mometasone 220 MCG MDI INH SCH (20:10)
[2016-10-25] MEDS: oxyCODONE TAB* 5 MG TAB PO PRN ×5 (00:28→20:24)
[2016-10-25] MEDS: Cefepime(*) 1 GM in NS 0.9% 50 ML* 50 ML IVPB SCH ×3 (00:44→16:00)
[2016-10-25] MEDS: Azithromycin IV(*) 500 MG in NS 0.9% 250 ML* 250 ML IVPB SCH (01:30)
[2016-10-25] MEDS ORDERED: Vancomycin Trough Check NOTE FOLLOW UP ONE (03:00)
[2016-10-25 04:33] LABS: Hematocrit 18 % (42-52); Mean Corpuscular HGB Conc 34 g/dl (31-36); Mean Corpuscular Hemoglobin 31 pg (27-31); Mean Corpuscular Volume 90 fL (80-94); Mean Platelet Volume 9 um3 (7.4-10.4); Red Blood Count 1.98 10^6/ul (4.0-5.4); Red Cell Distribution Width 17 % (10.5-15); White Blood Count 2.3 10^3/ul (3.5-10.8)
[2016-10-25 04:39] LABS: Comments Flag Yes
[2016-10-25 04:41] LABS: Add Diff/Slide Review? Slide Review Added
[2016-10-25] MEDS: Vancomycin(*) 1,250 MG in NS 0.9% 250 ML* 250 ML IVPB SCH ×3 (04:59→18:21)
[2016-10-25] MEDS: Omeprazole CAP* 20 MG PO SCH (07:30)
[2016-10-25] MEDS ORDERED: oxyCODONE TAB* 5 MG TAB PO PRN (09:08)
[2016-10-25] MEDS ORDERED: oxyCODONE TAB* 5 MG TAB ONE (09:11)
[2016-10-25] MEDS: Docusate CAP* 100 MG PO SCH ×2 (09:19→20:23)
[2016-10-25] MEDS: guaiFENesin ER TAB 600 MG PO SCH ×2 (09:19→20:25)
[2016-10-25] MEDS: Aspirin EC TAB* 325 MG PO SCH (09:21)
--- NOTE | 2016-10-25 09:31 | PN ---
Subjective Date of Service: 10/25/16 Interval History: Patient seen and examined at bedside. Pt denies fever, chills, lightheadedness or dizziness, shortness of breath, chest discomfort, N/V/D. Pt denies any signs of bleeding, per NSG Pt had a small amount of blood tinged sputum earlier today. Pt states that over the last 7 weeks he has been gradually not feeling well. He states that he is unable to workout after his chemotherapy each week. He states that he use to be able to workout after the chemo. He reports left shoulder discomfort that radiates to his neck and into his arm. Pt is very anxious to be discharged home. Family History: Unchanged from Admission Social History: Unchanged from Admission Past Medical History: Unchanged from Admission Objective Active Medications: Acetaminophen (Tylenol Tab*) 650 mg PO Q6H PRN Reason: FEVER/PAIN Aspirin (Ecotrin Ec Tab*) 325 mg PO DAILY ABRIL Cetirizine HCl (Zyrtec*) 10 mg PO QPM ABRIL Docusate Sodium (Colace Cap*) 200 mg PO BID ABRIL Guaifenesin (Mucinex*) 600 mg PO BID ABRIL Sodium Chloride (Ns 0.9% 1000 Ml*) 1,000 mls @ 125 mls/hr IV PER RATE ABRIL Azithromycin 500 mg/ Sodium (Chloride) 250 mls @ 250 mls/hr IVPB Q24H ABRIL Vancomycin HCl 1,250 mg/ (Sodium Chloride) 250 mls @ 166.667 mls/hr IVPB Q8H ABRIL Cefepime HCl 1 gm/ Sodium (Chloride) 50 mls @ 100 mls/hr IVPB Q8H ABRIL Melatonin (Melatonin (Nf)) 3 mg PO BEDTIME PRN; Protocol Reason: Sleep Mometasone Furoate (Asmanex 220 Mcg Mdi *) 2 puff INH QPM ABRIL Omeprazole (Prilosec Cap*) 20 mg PO DAILY@0600 ABRIL Ondansetron HCl (Zofran Inj*) 4 mg IV Q6H PRN Reason: NAUSEA Oxycodone HCl (Roxycodone Tab*) 5 mg PO Q4H PRN Reason: PAIN Pharmacy Consult (Vancomycin Per Pharmacy*) 1 note FOLLOW UP . PRN Reason: PER PROTOCOL Valacyclovir HCl (Valtrex 500 Mg (*)) 500 mg PO BEDTIME ABRIL Reason: Protocol Zolpidem Tartrate (Ambien Tab*) 10 mg PO BEDTIME PRN Reason: INSOMNIA Vital Signs 10/24/16 10/24/16 10/24/16 15:25 16:16 19:25 Temperature 99.8 F 98.1 F Pulse Rate 80 73 Respiratory 28 16 22 Rate Blood Pressure 125/52 115/49 (mmHg) O2 Sat by Pulse 97 96 Oximetry 10/24/16 10/24/16 10/24/16 20:10 20:24 23:00 Temperature Pulse Rate Respiratory 20 20 20 Rate Blood Pressure (mmHg) O2 Sat by Pulse 98 Oximetry 10/24/16 10/25/16 10/25/16 23:57 00:28 01:14 Temperature 99.0 F Pulse Rate 87 Respiratory 16 20 Rate Blood Pressure 126/54 (mmHg) O2 Sat by Pulse 95 98 Oximetry Oxygen Devices in Use Now: None Appearance: NAD, laying in bed Ears/Nose/Mouth/Throat: Mucous Membranes Moist Respiratory: Symmetrical Chest Expansion and Respiratory Effort, Clear to Auscultation Cardiovascular: NL Sounds; No Murmurs; No JVD, RRR Abdominal: NL Sounds; No Tenderness; No Distention Extremities: No Edema Neurological: Alert and Oriented x 3, NL Muscle Strength and Tone Lines/Tubes/Other Access: Clean, Dry and Intact Peripheral IV - site benign, Clean, Dry and Intact Other Access - Power port site benign Nutrition: Taking PO's Result Diagrams: 10/25/16 04:00 10/24/16 04:10 Additional Lab and Data: Microbiology and Other Data: Microbiology 10/23/16 23:50 Legionella Urinary Antigen - Final Urine Negative Legionella Streptococcus pneumoniae Ag Screen - Final Negative S. pneumo Antigen Assess/Plan/Problems-Billing Assessment: Mr. Kennedy is a 66 yo male with a PMH of multiple myeloma who was admitted on 10/23/16 with neutropenic fever. - Patient Problems (1) Neutropenic fever Code(s): D70.9 - NEUTROPENIA, UNSPECIFIED; R50.81 - FEVER PRESENTING WITH CONDITIONS CLASSIFIED ELSEWHERE SNOMED Code(s): 539761200 Comment: - Afebrile ~ 36h, Tmax 103.2. WBC down to 1.8 but now 2.3, ANC down to 0.8 and now 1.1. CRP 214.24. - Etiology unclear. UA negative, cxray negative, BC no growth day 1. - Had completed a course of levaquin outpatient for cough (no fever at that point) almost 2 weeks ago. - Continue azithromycin, cefepime and vancomycin. - Plan to discharge on oral ABX with pseudomonas coverage (Levaquin per oncall ONC at [facility] Dr. Infante with Dr. Alston's office) (2) Anemia Code(s): D64.9 - ANEMIA, UNSPECIFIED SNOMED Code(s): 301450916 Comment: - 10/19 HH 8.6/24.9 - Will transfuse 2 units irradiated PRBCs today - Recheck CBC in AM (3) Multiple myeloma Code(s): C90.00 - MULTIPLE MYELOMA NOT HAVING ACHIEVED REMISSION SNOMED Code(s ): 366142965 Comment: - Under the care of Dr Alston at [facility]. Last treatment on 10/19/16, of daratumumab and pomalyst. - Has been progressively neutropenic. (4) Colostomy in place Code(s): Z93.3 - COLOSTOMY STATUS SNOMED Code(s): 908928184 Comment: - History of perforated diverticulitis s/p colon resection. (5) DVT prophylaxis Code(s): [id number] - SNOMED Code(s): 420117331 Comment: - SCDs only, no chemical dvt prophylaxis secondary to thrombocytopenia. (6) Full code status Code(s): Z78.9 - OTHER SPECIFIED HEALTH STATUS SNOMED Code(s): 313514239 Status and Disposition: Inpatient with expected LOS > 2 days. Anticipate discharge to home when medically stable, possibly in the AM.
[2016-10-25] MEDS: Cetirizine* 10 MG TAB PO SCH (17:23)
[2016-10-25] MEDS: NS 0.9% 1000 ML* 1,000 ML IV SCH (18:28)
[2016-10-25] MEDS: Mometasone 220 MCG MDI INH SCH (20:02)
[2016-10-25] MEDS: ValACYclovir (*) 500 MG TAB PO SCH (20:23)
[2016-10-25] MEDS: Ondansetron INJ* 2 MG/ML VIAL IV PRN (20:29)
[2016-10-25] MEDS: Acetaminophen TAB* 325 MG PO PRN (21:40)
[2016-10-26] MEDS: Cefepime(*) 1 GM in NS 0.9% 50 ML* 50 ML IVPB SCH ×2 (00:29→07:50)
[2016-10-26] MEDS: oxyCODONE TAB* 5 MG TAB PO PRN ×3 (00:59→12:29)
[2016-10-26] MEDS: Azithromycin IV(*) 500 MG in NS 0.9% 250 ML* 250 ML IVPB SCH (01:33)
[2016-10-26] MEDS: Acetaminophen TAB* 325 MG PO PRN ×2 (03:00→09:07)
[2016-10-26] MEDS ORDERED: Cetirizine* 10 MG TAB PO SCH (03:00)
[2016-10-26] MEDS: NS 0.9% 1000 ML* 1,000 ML IV SCH (03:02)
[2016-10-26] MEDS: Vancomycin(*) 1,250 MG in NS 0.9% 250 ML* 250 ML IVPB SCH ×2 (03:02→11:01)
[2016-10-26] MEDS: Omeprazole CAP* 20 MG PO SCH (05:15)
[2016-10-26 05:56] LABS: Hematocrit 22 % (42-52); Hemoglobin 7.5 g/dl (14.0-18.0); Mean Corpuscular HGB Conc 34 g/dl (31-36); Mean Corpuscular Hemoglobin 30 pg (27-31); Mean Corpuscular Volume 87 fL (80-94); Mean Platelet Volume 9 um3 (7.4-10.4); Red Blood Count 2.52 10^6/ul (4.0-5.4); Red Cell Distribution Width 18 % (10.5-15)
[2016-10-26 06:01] LABS: Add Diff/Slide Review? Manual Diff Added; Comments Flag Yes; White Blood Count 2.8 10^3/ul (3.5-10.8)
[2016-10-26 06:24] LABS: Eosinophils % 5 % (0-6); Immature Granulocytes 12 % (0-9); Neutrophil % 47 % (38-83); Reactive Lymph % 8 % (0-6)
[2016-10-26 06:25] LABS: Add Path Review? YES; Hypochromasia 1+; Tear Drop Cells 1+; Toxic Granulation 1+
[2016-10-26 07:46] VITALS: BP 145/68
[2016-10-26] MEDS: Docusate CAP* 100 MG PO SCH (07:48)
[2016-10-26] MEDS: Aspirin EC TAB* 325 MG PO SCH (07:49)
[2016-10-26] MEDS: guaiFENesin ER TAB 600 MG PO SCH (07:49)
--- NOTE | 2016-10-26 10:22 | PN ---
Subjective Date of Service: 10/26/16 Interval History: Patient seen and examined at bedside. accompanying patient. Mr. Kennedy expressed anxiety and concern for all the symptoms he has been having since starting his new chemo, stating that he has had weakness and can't even work out anymore. He does report improvement in overall weakness and fatigue following PRBC transfusion and is anxious for discharge. I did inquire if the patient has noted any bleeding, including black tarry stools. He does endorse previous dark stools. He has been on aspirin as part of his chemotherapy regimen. He denies any CP, SOB, abd pain, n/v. He reports constipation since increasing his Percocet dosing from 1 to 2 tabs. Family History: Unchanged from Admission Social History: Unchanged from Admission Past Medical History: Unchanged from Admission Objective Active Medications: Acetaminophen (Tylenol Tab*) 650 mg PO Q6H PRN PRN Reason: FEVER/PAIN Last Admin: 10/26/16 09:07 Dose: 650 mg Aspirin (Ecotrin Ec Tab*) 325 mg PO DAILY [facility] Last Admin: 10/26/16 07:49 Dose: 325 mg Cetirizine HCl (Zyrtec*) 10 mg PO QPM [facility] Last Admin: 10/26/16 03:00 Dose: 10 mg Docusate Sodium (Colace Cap*) 200 mg PO BID [facility] Last Admin: 10/26/16 07:48 Dose: 200 mg Guaifenesin (Mucinex*) 600 mg PO BID [facility] Last Admin: 10/26/16 07:49 Dose: 600 mg Sodium Chloride (Ns 0.9% 1000 Ml*) 1,000 mls @ 125 mls/hr IV PER RATE [facility] Last Admin: 10/26/16 03:02 Dose: 125 mls/hr Azithromycin 500 mg/ Sodium (Chloride) 250 mls @ 250 mls/hr IVPB Q24H [facility] Last Admin: 10/26/16 01:33 Dose: 250 mls/hr Vancomycin HCl 1,250 mg/ (Sodium Chloride) 250 mls @ 166.667 mls/hr IVPB Q8H [facility] Last Admin: 10/26/16 03:02 Dose: 166.667 mls/hr Cefepime HCl 1 gm/ Sodium (Chloride) 50 mls @ 100 mls/hr IVPB Q8H [facility] Last Admin: 10/26/16 07:50 Dose: 100 mls/hr Melatonin (Melatonin (Nf)) 3 mg PO BEDTIME PRN; Protocol PRN Reason: Sleep Mometasone Furoate (Asmanex 220 Mcg Mdi *) 2 puff INH QPM [facility] Last Admin: 10/25/16 20:02 Dose: 2 inh Omeprazole (Prilosec Cap*) 20 mg PO DAILY@0600 [facility] Last Admin: 10/26/16 05:15 Dose: 20 mg Ondansetron HCl (Zofran Inj*) 4 mg IV Q6H PRN PRN Reason: NAUSEA Last Admin: 10/25/16 20:29 Dose: 4 mg Oxycodone HCl (Roxycodone Tab*) 10 mg PO Q4H PRN PRN Reason: PAIN - MODERATE TO SEVERE Last Admin: 10/26/16 05:15 Dose: 10 mg Oxycodone HCl (Roxycodone Tab*) 5 mg PO Q4H PRN PRN Reason: PAIN - MILD TO MODERATE Pharmacy Consult (Vancomycin Per Pharmacy*) 1 note FOLLOW UP . PRN PRN Reason: PER PROTOCOL Pharmacy Profile Note (Vancomycin Trough Check) 1 note FOLLOW UP 1100 ONE Stop: 10/27/16 11:01 Valacyclovir HCl (Valtrex 500 Mg (*)) 500 mg PO BEDTIME [facility] PRN Reason: Protocol Last Admin: 10/25/16 20:23 Dose: 500 mg Zolpidem Tartrate (Ambien Tab*) 10 mg PO BEDTIME PRN PRN Reason: INSOMNIA Vital Signs 10/25/16 10/25/16 10/25/16 11:20 11:35 16:00 Temperature 99.0 F Pulse Rate 75 Respiratory 18 16 24 Rate Blood Pressure 137/60 (mmHg) O2 Sat by Pulse 98 Oximetry 10/25/16 10/25/16 10/25/16 19:00 19:53 20:00 Temperature 99.8 F Pulse Rate 87 Respiratory 20 20 20 Rate Blood Pressure 147/62 (mmHg) O2 Sat by Pulse 98 Oximetry 10/25/16 10/25/16 10/25/16 20:04 20:18 20:24 Temperature 99.5 F Pulse Rate 81 82 Respiratory 18 20 20 Rate Blood Pressure 150/62 (mmHg) O2 Sat by Pulse 96 98 Oximetry 10/25/16 10/25/16 10/25/16 21:56 22:24 23:12 Temperature 98.1 F Pulse Rate 76 Respiratory 18 20 Rate Blood Pressure 142/60 (mmHg) O2 Sat by Pulse 97 Oximetry 10/26/16 10/26/16 10/26/16 00:59 01:06 02:13 Temperature 98.5 F 98.2 F Pulse Rate 86 73 Respiratory 18 18 16 Rate Blood Pressure 139/64 136/64 (mmHg) O2 Sat by Pulse 95 96 Oximetry 10/26/16 10/26/16 10/26/16 02:59 05:15 05:56 Temperature Pulse Rate Respiratory 18 22 20 Rate Blood Pressure (mmHg) O2 Sat by Pulse Oximetry 10/26/16 10/26/16 10/26/16 07:38 08:00 09:38 Temperature 98.1 F Pulse Rate 71 Respiratory 19 18 Rate Blood Pressure 145/68 (mmHg) O2 Sat by Pulse 96 Oximetry Oxygen Devices in Use Now: None Appearance: Male patient, OOB to chair, NAD Eyes: No Scleral Icterus Ears/Nose/Mouth/Throat: Clear Oropharnyx, Mucous Membranes Moist Neck: NL Appearance and Movements; NL JVP Respiratory: Symmetrical Chest Expansion and Respiratory Effort, Clear to Auscultation Cardiovascular: NL Sounds; No Murmurs; No JVD, RRR Abdominal: NL Sounds; No Tenderness; No Distention Extremities: No Edema Neurological: Alert and Oriented x 3, NL Muscle Strength and Tone Lines/Tubes/Other Access: Clean, Dry and Intact Central Line - Power port site benign Nutrition: Taking PO's Result Diagrams: 10/26/16 11:00 10/24/16 04:10 Additional Lab and Data: Microbiology and Other Data: Microbiology 10/23/16 23:50 Legionella Urinary Antigen - Final Urine Negative Legionella Streptococcus pneumoniae Ag Screen - Final Negative S. pneumo Antigen Assess/Plan/Problems-Billing Assessment: Mr. Kennedy is a 66 yo male with a PMH of multiple myeloma who was admitted on 10/23/16 with neutropenic fever. - Patient Problems (1) Neutropenic fever Code(s): D70.9 - NEUTROPENIA, UNSPECIFIED; R50.81 - FEVER PRESENTING WITH CONDITIONS CLASSIFIED ELSEWHERE Comment: Afebrile since 10/24/16, Tmax 103.2. WBC improving, now 2.8, ANC 1.3 Etiology unclear, suspect viral. UA and CXR negative, blood cx with no growth x 48 hours Completed a course of outpt levofloxacin for cough (no fever at that point) ~2 weeks ago. Continue azithromycin, cefepime, and vancomycin. Plan to discharge on oral ABX with pseudomonas coverage (Levaquin per oncall ONC at [facility] Dr. Infante with Dr. Alston's office) (2) Anemia Code(s): D64.9 - ANEMIA, UNSPECIFIED Comment: 10/19 HH 8.6/24.9 S/p 2 units irradiated PRBCs 7.5/22 this AM Stool occult negative Recheck CBC prior to dc and plan for follow-up CBC in 2 days. (3) Multiple myeloma Code(s): C90.00 - MULTIPLE MYELOMA NOT HAVING ACHIEVED REMISSION Comment: Under the care of Dr. Alston at [facility] Last treatment on 10/19/16 with daratumumab and Pomalyst. Progressive neutropenia as expected with recent chemotherapy Discussed with Dr Anna, recommend holding ASA until onc follow-up, given pancytopenia (4) Colostomy in place Code(s): Z93.3 - COLOSTOMY STATUS Comment: History of perforated diverticulitis s/p colon resection. (5) DVT prophylaxis Comment: SCDs only, no chemical dvt prophylaxis secondary to thrombocytopenia. (6) Full code status Code(s): Z78.9 - OTHER SPECIFIED HEALTH STATUS Status and Disposition: Inpatient with expected LOS > 2 days. D/c to home with PCP and oncology follow- up.
[2016-10-26 12:03] LABS: Hematocrit 23 % (42-52); Hemoglobin 7.9 g/dl (14.0-18.0); Mean Corpuscular HGB Conc 34 g/dl (31-36); Mean Corpuscular Hemoglobin 30 pg (27-31); Mean Corpuscular Volume 88 fL (80-94); Mean Platelet Volume 7 um3 (7.4-10.4); Red Blood Count 2.65 10^6/ul (4.0-5.4); Red Cell Distribution Width 17 % (10.5-15)
[2016-10-26 12:19] LABS: Comments Flag Yes
[2016-10-26 12:21] LABS: Add Diff/Slide Review? Manual Diff Added
[2016-10-26] MEDS ORDERED: Mometasone 220 MCG MDI INH SCH (19:00)
--- NOTE | 2016-10-27 02:00 | DS ---
CC: Dr. Saavedra; Dr. Carlie Alston, [facility] * MEDICINE DISCHARGE SUMMARY: DATE OF ADMISSION: 10/23/16 DATE OF DISCHARGE: 10/26/16 PROVIDER: Simran Yusuf NP ATTENDING PHYSICIAN: Dr. Anna Clakr * (as dictated by Simran Yusuf NP) PRIMARY CARE PROVIDER: Dr. Saavedra. PRIMARY ONCOLOGIST: Dr. Carlie Alston, [facility] [place]. PRIMARY DISCHARGE DIAGNOSES: 1. Neutropenic fever. 2. Pancytopenia. SECONDARY DISCHARGE DIAGNOSES: 1. Multiple myeloma, status post chemotherapy. 2. Cervical spondylosis. 3. History of perforated diverticulitis, status post colon resection and colostomy. 4. History of stem cell transplant. MEDICATIONS AT DISCHARGE: 1. Acetaminophen 650 mg q.6 hours p.r.n. 2. Docusate 200 mg b.i.d. 3. Melatonin 3 mg at bedtime p.r.n. 4. Fluticasone 1 puff inhaled b.i.d. 5. Loratadine 10 mg daily. 6. Multivitamin 1 capsule daily. 7. Zofran p.r.n. nausea and vomiting. 8. Valaciclovir 500 mg daily. 9. Zometa 4 mg IV q.3 months. 10. Mucinex 600 mg b.i.d. 11. Oxycodone 5 to 10 mg q.4 hours p.r.n. 12. Zolpidem 10 mg at bedtime p.r.n. 13. Levofloxacin 500 mg daily x7 days. This is a new medication. Note, the patient has pomalidomide on his medication list. The patient has been instructed to hold this until followup with his oncologist. Prednisone is also noted here, which the patient was advised to continue and to hold medications for chemotherapy until followup with his oncologist. The patient was advised to hold his aspirin given his pancytopenia and anemia until followup next week with his oncologist. HOSPITAL COURSE OF STAY: For full details, please refer to the H and P provided by Dr. Rodriguez on 10/23/16. In summary, Mr. Kennedy is a 66-year- old male patient with a history of multiple myeloma, status post stem cell transplant, and recent recurrence of multiple myeloma, now on chemotherapy, who presented to the ER with concern for fever and cough. The patient developed a cough 2 weeks prior to the admission and was started on azithromycin, which he took for 2 days until his oncologist changed it to a 10-day course of levofloxacin. The patient says he did complete this 3 days prior to admission. He had his infusion of Privigen IVIg on 10/23/16 and came home and later developed a fever around 5 o'clock that evening of 101. He was advised to report to the ER for further evaluation. He did endorse night sweats which had been ongoing for quite some time. Mr. Kennedy was admitted with concern for neutropenic fever with unknown origin and he was started on vancomycin, cefepime , and erythromycin to cover for potential port infection and potential pneumonia. A chest x-ray and urine culture and serum studies were also ordered. The patient's urinalysis did not show any significant growth. The patient's chest x-ray showed no compelling evidence for pneumonia or other significant acute intrathoracic processes. The patient had blood cultures drawn one from his port and one from a peripheral stick, which was no growth thus far. His legionella and Streptococcus pneumoniae antigens are both negative. We checked a stool occult, which was negative for bleeding. The patient's max temperature was 103.2, which was on the evening of admission. He has had no further fevers since then. He has been maintained on the triple antibiotic therapy while here in the hospital. We did discuss the patient with [facility] oncologist, Dr. Infante, as well as Dr. Lundberg. It was recommended the patient could be discharged home on p.o. Levaquin and that the patient should call for followup, to be seen within the next week. The patient was originally scheduled for chemotherapy today, on 10/26/16. I did also discuss the patient's case with our hospital oncology team, who is in agreement with the plan. Given the patient's anemia and pancytopenia, which includes a platelet count of 19,000 as well as an H and H of 7.9 and 23 prior to discharge, it was felt that the patient's aspirin could be held until followup with his oncologist. The patient 's lowest ANC was 0.8 on 10/24/16 and he has come up to 1.4 at the time of discharge. Again, his discharge white blood cell count is 3000 with an H and H of 7.9 and 23 respectively as well as platelet count of 19,000. Mr. Kennedy does endorse some frustration with his recurrence of multiple myeloma as well as the side effects from his chemotherapy, which includes increasing fatigue as well as an inability to participate in his usual exercise regimen. I did encourage Mr. Kennedy to discuss these concerns with his oncologist regarding his chemotherapy regimen and to monitor for any further signs of fever, acute illness, chest pain, trouble breathing, or any other symptoms or concerns. He does report some constipation reporting small hard stools coming from his ostomy. The patient was advised to continue using a stool softener and to perhaps try a mild laxative such as Dulcolax or MiraLAX to help alleviate this. He reports that this new constipation is in conjunction with increasing his Percocet tablets from 1 to 2 tabs for better pain control. At the time of discharge, the patient is in stable condition, reports feeling better, is very anxious for discharge. He understands the discharge instructions and agrees to follow up with his oncologist and PCP. They will call for appointment to be seen in [facility]. CONCERNS AT DISCHARGE: Mr. Kennedy is discharged to home on 10/26/16 to follow up with Dr. Alston and Dr. Saavedra. OUTPATIENT FOLLOWUP NEEDS: The patient was given a script for a followup CBC in 2 days with results to be sent to his PCP and oncologist. DIET: Neutropenic diet. ACTIVITY: As tolerated. CONDITION: Improved, stable. DISPOSITION: To home. TIME SPENT: Time spent on this discharge was approximately 55 minutes. Again, this is only a brief summary of the patient's hospital course of stay, for full details please refer to the full medical record. If you have any further questions or need further assistance, please feel free to contact me at [phone]. SIMRAN YUSUF NP [id number]/GLENYS #: [id number] ANNIE
[2016-10-27] MEDS ORDERED: Vancomycin Trough Check NOTE FOLLOW UP ONE (11:00)
== END 2016-10-26 14:15 | disposition home or self-care (01) | DRG 809 ==
LOC: ED 20:35 → MED 23:30 → OBSVTOIN 10-24 14:42
PROVIDERS: ADMIT Hospitalist; ATTEND Internal Medicine
PROC: 30233N1 Transfusion of Nonautologous Red Blood Cells into Peripheral Vein, Percutaneous Approach (ICD-10-PCS; principal; 2016-10-25)
DX: D70.9 Neutropenia, unspecified (principal); C90.02 Multiple myeloma in relapse; R50.81 Fever presenting with conditions classified elsewhere; D61.810 Antineoplastic chemotherapy induced pancytopenia; K59.03 Drug induced constipation; T45.1X5A Adverse effect of antineoplastic and immunosuppressive drugs, initial encounter; M47.892 Other spondylosis, cervical region; Y92.9 Unspecified place or not applicable; Z79.82 Long term (current) use of aspirin; Z93.3 Colostomy status; Z79.2 Long term (current) use of antibiotics; Z79.899 Other long term (current) drug therapy; Z88.8 Allergy status to other drugs, medicaments and biological substances; Z91.013 Allergy to seafood; Z80.42 Family history of malignant neoplasm of prostate
CPT/HCPCS: 36415; 71020; 80048; 80053; 80076; 80202; 81003; 82272; 83605; 84134; 84484; 85025; 85060; 85610; 85730; 86140; 86850; 86900; 86901; 86922; 87040; 87899; 93005; 94640; A9270-GY; J0456; J0692; J1642; J2405; J3370; P9040

== ENCOUNTER 2016-11-29 16:34 | Emergency (ER) | payer MEDICARE, OTHER ==
[2016-11-29] MEDS ORDERED: FILGRASTIM-SNDZ* 480 MCG/0.8 ML SYRINGE SUBCUT ONE (17:31)
[2016-11-29 17:57] VITALS: BP 139/58
--- NOTE | 2016-11-29 18:12 | ED ---
Nayla Perez Edward, scribed for Yandel Knight MD on 11/29/16 at 1725 . Complex/Multi-Sys Presentation - HPI Summary HPI Summary: 66 y/o male presents to ED seeking medication. Pt was d/c'ed from [facility] yesterday. Pt was dx with Multiple Myeloma and recently underwent DCEP treatment , which lowered the pt's WBC count. Pt's doctor in [place] wanted the pt to receive Filgrastim 480 micrograms subcutaneous. Spoke with the pt's doctor in [place] who verified the request. Pt is asymptomatic in the ED. - History Of Current Complaint Chief Complaint: EDGeneral Time Seen by Provider: 11/29/16 17:19 Hx Obtained From: Patient Severity Currently: None Location: Negative Related History: Recent Illness - Multiple Myeloma (DCEP therapy) - Allergies/Home Medications Allergies/Adverse Reactions: Allergies Allergy/AdvReac Type Severity Reaction Status Date / Time Shellfish Allergy Allergy Severe Anaphylatic Verified 10/23/16 21:36 Shock Atovaquone [From Mepron] Allergy Intermediate Rash And Verified 10/23/16 21:36 Itching Statins Allergy Intermediate myalgia Verified 10/23/16 21:36 PMH/Surg Hx/FS Hx/Imm Hx Previously Healthy: No Endocrine/Hematology History: Reports: Hx Bone Marrow Disease - MULTIPLE MYELOMA , ON CHEMO Denies: Hx Diabetes Cardiovascular History: Denies: Hx Congestive Heart Failure, Hx Hypertension Respiratory History: Reports: Other Respiratory Problems/Disorders - OCCAS SOB R /T CHEMO (POMALYST) Denies: Hx Asthma, Hx Chronic Obstructive Pulmonary Disease (COPD) GI History: Reports: Hx Diverticulosis, Hx Gall Bladder Disease, Hx Gastroesophageal Reflux Disease - HX OF , NO MEDS, Other GI Disorders - diverticulitis History: Denies: Hx Renal Disease Musculoskeletal History: Reports: Other Musculoskeletal History - Cervical sponylosis Sensory History: Reports: Hx Contacts or Glasses Opthamlomology History: Reports: Hx Contacts or Glasses - Cancer History Cancer Type, Location and Year: 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 Stem cell transplant (2014) Hx Chemotherapy: Yes - Surgical History Surgery Procedure, Year, and Place: tonsilectomy. stem cell transplant 2014. mj placed in cervical spine. vein removal left leg Hx Anesthesia Reactions: No - Immunization History Date of Tetanus Vaccine: unk Date of Influenza Vaccine: unk Infectious Disease History: No Infectious Disease History: Denies: Hx of Known/Suspected MRSA, Traveled Outside the [place] in Last 30 Days - Family History Known Family History: Positive: Other - No- Malignant Hypothermia Family History: son - ruptured diverticulitis. FHx of prostate CA (Father) - Social History Alcohol Use: Occasionally Alcohol Amount: WINE 1 MONTH Hx Substance Use: No Substance Use Type: Reports: None Hx Tobacco Use: No Smoking Status (MU): Never Smoked Tobacco Have You Smoked in the Last Year: No Review of Systems Constitutional: Negative Eyes: Negative ENT: Negative Cardiovascular: Negative Respiratory: Negative Gastrointestinal: Negative Genitourinary: Negative Musculoskeletal: Negative Skin: Negative Neurological: Negative Psychological: Normal All Other Systems Reviewed And Are Negative: Yes Physical Exam Triage Information Reviewed: Yes Vital Signs On Initial Exam: Initial Vitals Temp Pulse Resp BP Pulse Ox 98.4 F 67 14 137/60 98 11/29/16 16:39 11/29/16 16:39 11/29/16 16:39 11/29/16 16:39 11/29/16 16:39 Vital Signs Reviewed: Yes Appearance: Positive: Well-Appearing, No Pain Distress Skin: Positive: Warm, Skin Color Reflects Adequate Perfusion, Dry Head/Face: Positive: Normal Head/Face Inspection Eyes: Positive: EOMI, [place] ENT: Positive: Normal ENT inspection Neck: Positive: Supple, Nontender Respiratory/Lung Sounds: Positive: Clear to Auscultation, Breath Sounds Present Cardiovascular: Positive: RRR Abdomen Description: Positive: Nontender, Soft Bowel Sounds: Positive: Present Musculoskeletal: Positive: Normal, Strength/ROM Intact Neurological: Positive: Normal, Sensory/Motor Intact, Alert, Oriented to Person Place, Time Psychiatric: Positive: Affect/Mood Appropriate - Felch Coma Scale Coma Scale Total: 15 Diagnostics - Vital Signs Vital Signs Temp Pulse Resp BP Pulse Ox 11/29/16 16:39 98.4 F 67 14 137/60 98 - Laboratory Lab Statement: Any lab studies that have been ordered have been reviewed, and results considered in the medical decision making process. Complex Multi-Symp Course/Dx Course Of Treatment: I SPOKE WITH PATIENT'S DOCTOR IN [place]. PATIENT GIVEN FILGRASTIN 480 MCG SC IN ED. - Diagnoses Provider Diagnoses: Neutropenia, Multiple myeloma Discharge - Discharge Plan Condition: Good Disposition: HOME Patient Education Materials: Neutropenia (ED) Referrals: Moi Seymour MD [Primary Care Provider] - Additional Instructions: FOLLOW UP WITH YOUR DOCTOR. RETURN TO THE EMERGENCY DEPARTMENT FOR ANY WORSENING OF YOUR CONDITION OR QUESTIONS OR CONCERNS. The documentation as recorded by the Nayla gonzalez Edward accurately reflects the service I personally performed and the decisions made by me, Yandel Knight MD.
== END 2016-11-29 17:58 | disposition home or self-care (01) ==
LOC: ED 16:34
DX: D70.9 Neutropenia, unspecified (principal); C90.00 Multiple myeloma not having achieved remission
CPT/HCPCS: 99281; Q5101 ZA

== ENCOUNTER 2017-02-07 21:08 | Emergency (ER) | payer MEDICARE, OTHER ==
[2017-02-07] MEDS ORDERED: Cyclobenzaprine TAB* 10 MG PO ONE ×2 (21:42→21:58)
--- NOTE | 2017-02-07 22:02 | ED ---
Karthik Perez Thomas, scribed for Consuelo Palumbo MD on 02/07/17 at 2201 . Back Pain - HPI Summary HPI Summary: The patient is a 66 y/o M with a Hx of multiple myeloma. He is on chemotherapy and his last treatment was two days ago. He gets his chemotherapy treatment at [facility]. 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 He complains of bilateral upper back pain, more on the left than the right, on and off for the last 10 days. This pain is worse with movement. The patient has been treating the pain with lidocaine patches prior to arrival, and he feels better now. He also took 6 pills of Oxycodone today for the pain. He has a colostomy because of diverticulitis. - History of Current Complaint Chief Complaint: EDBackInjuryPain Stated Complaint: BACK PAIN Time Seen by Provider: 02/07/17 21:24 Hx Obtained From: Patient Onset/Duration: Lasting Days - 10, Still Present Timing: Intermittent Severity Currently: Mild Pain Intensity: 1 Pain Scale Used: 0-10 Numeric Aggravating Symptom(s): Movement Alleviating Symptom(s): OTC Meds Associated Signs And Symptoms: Positive: Negative - Allergies/Home Medications Allergies/Adverse Reactions: Allergies Allergy/AdvReac Type Severity Reaction Status Date / Time Shellfish Allergy Allergy Severe Anaphylatic Verified 02/07/17 21:16 Shock Atovaquone [From Mepron] Allergy Intermediate Rash And Verified 02/07/17 21:16 Itching Statins Allergy Intermediate myalgia Verified 02/07/17 21:16 PMH/Surg Hx/FS Hx/Imm Hx Previously Healthy: No Endocrine/Hematology History: Reports: Hx Bone Marrow Disease - MULTIPLE MYELOMA , ON CHEMO Denies: Hx Diabetes Cardiovascular History: Denies: Hx Congestive Heart Failure, Hx Hypertension Respiratory History: Reports: Other Respiratory Problems/Disorders - OCCAS SOB R /T CHEMO (POMALYST) Denies: Hx Asthma, Hx Chronic Obstructive Pulmonary Disease (COPD) GI History: Reports: Hx Diverticulosis, Hx Gall Bladder Disease, Hx Gastroesophageal Reflux Disease - HX OF , NO MEDS, Other GI Disorders - diverticulitis History: Denies: Hx Renal Disease Musculoskeletal History: Reports: Other Musculoskeletal History - Cervical sponylosis Sensory History: Reports: Hx Contacts or Glasses Denies: Hx Hearing Aid Opthamlomology History: Reports: Hx Contacts or Glasses - Cancer History Cancer Type, Location and Year: 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 Stem cell transplant (2014) Hx Chemotherapy: Yes - Surgical History Surgery Procedure, Year, and Place: tonsilectomy. stem cell transplant 2014. mj placed in cervical spine. vein removal left leg Hx Anesthesia Reactions: No - Immunization History Date of Tetanus Vaccine: unk Date of Influenza Vaccine: unk Infectious Disease History: No Infectious Disease History: Denies: Hx of Known/Suspected MRSA, Traveled Outside the [place] in Last 30 Days - Family History Known Family History: Positive: Other - No- Malignant Hypothermia Family History: son - ruptured diverticulitis. FHx of prostate CA (Father) - Social History Alcohol Use: Occasionally Alcohol Amount: WINE 1 MONTH Hx Substance Use: No Substance Use Type: Reports: None Hx Tobacco Use: No Smoking Status (MU): Never Smoked Tobacco Have You Smoked in the Last Year: No Review of Systems Negative: Fever Positive: Other - Bilateral upper back pain All Other Systems Reviewed And Are Negative: Yes Physical Exam - Summary Physical Exam Summary: VITAL SIGNS: Reviewed. GENERAL: Patient is a well-developed and nourished male who is lying comfortable in the stretcher. Patient is not in any acute respiratory distress. HEAD AND FACE: No signs of trauma. No ecchymosis, hematomas or skull depressions. No sinus tenderness. EYES: PERRLA, EOMI x 2, No injected conjunctiva, no nystagmus. EARS: Hearing grossly intact. Ear canals and tympanic membranes are within normal limits. MOUTH: Oropharynx within normal limits. NECK: Supple, trachea is midline, no adenopathy, no JVD, no carotid bruit, no c- spine tenderness, neck with full ROM. CHEST: Symmetric, no tenderness at palpation LUNGS: Clear to auscultation bilaterally. No wheezing or crackles. CVS: Regular rate and rhythm, S1 and S2 present, no murmurs or gallops appreciated. ABDOMEN: There is a colostomy in the left lower abdomen. Soft, non-tender. No signs of distention. No rebound no guarding, and no masses palpated. Bowel sounds are normal. EXTREMITIES: FROM in all major joints, no edema, no cyanosis or clubbing. NEURO: Alert and oriented x 3. No acute neurological deficits. Speech is normal and follows commands. SKIN: Dry and warm Triage Information Reviewed: Yes Vital Signs On Initial Exam: Initial Vitals Temp Pulse Resp BP Pulse Ox 99.6 F 73 15 140/72 97 02/07/17 21:11 02/07/17 21:11 02/07/17 21:11 02/07/17 21:11 02/07/17 21:11 Vital Signs Reviewed: Yes - Varney Coma Scale Coma Scale Total: 15 Diagnostics - Vital Signs Vital Signs Temp Pulse Resp BP Pulse Ox 02/07/17 21:11 99.6 F 73 15 140/72 97 - Laboratory Lab Statement: Any lab studies that have been ordered have been reviewed, and results considered in the medical decision making process. Back Pain Course/Dx - Course Assessment/Plan: The patient is a 66 y/o M with a Hx of multiple myeloma. He is on chemotherapy and his last treatment was two days ago. He gets his chemotherapy treatment at [facility]. 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 He complains of bilateral upper back pain, more on the left than the right, on and off for the last 10 days. This pain is worse with movement. The patient has been treating the pain with lidocaine patches prior to arrival, and he feels better now. He also took 6 pills of Oxycodone today for the pain. He has a colostomy because of diverticulitis. The patient has back pain, most likely due to muscle spasms. However, I cannot rule out myeloma. The patient was given Flexeril. He will follow up with the oncologist appointment he has scheduled in five days. The patient was advised to make sure to discuss his pain with the oncologist to make sure that there is no myeloma lesion. - Diagnoses Provider Diagnoses: Upper back pain / Muscle spasms Discharge - Discharge Plan Condition: Stable Disposition: HOME Prescriptions: Cyclobenzaprine HCl [Flexeril 5 mg (NF)] 5 mg PO TID PRN #20 tab PRN Reason: Spasms - Muscle Patient Education Materials: Muscle Spasm (ED) Referrals: Moi Seymour MD [Primary Care Provider] - Additional Instructions: Flexeril as needed for muscle spasm. Warm and cold compresses. Follow up with Oncologist as planned on Wednesday. Return to ED if worse. The documentation as recorded by the Karthik gonzalez Thomas accurately reflects the service I personally performed and the decisions made by me, Consuelo Palumbo MD.
[2017-02-07 22:12] VITALS: BP 121/66
== END 2017-02-07 22:12 | disposition home or self-care (01) ==
LOC: ED 21:08
DX: M54.6 Pain in thoracic spine (principal); M62.830 Muscle spasm of back; K21.9 Gastro-esophageal reflux disease without esophagitis; C90.00 Multiple myeloma not having achieved remission; Z92.21 Personal history of antineoplastic chemotherapy
CPT/HCPCS: 99282; A9270-GY

== ENCOUNTER 2017-03-17 11:09 | Emergency (ER) | payer MEDICARE, OTHER ==
--- NOTE | 2017-03-17 12:18 | ED ---
Lower Extremity - HPI Summary HPI Summary: Patient with a history of MM presents to the ED with request for MD to come here for MRI. He has been on CyBorD x 6 cycyles in 2014 and DCEP from -2016. Since that time he has developed worsening numbness and tingling into his R calf, R and L upper thighs and intermittently throughout the chest. Previously had problems with weakness in the hips bilaterally which he feels has now shifted to the lower legs. He is seen by [facility] [place] with DR. Zuri Cutler and Carlie Alston. He is also seen in [place] where he received his first cycle of DCEP and cycle 3 was completed on . [facility] and advised he come here for an MRI to r/o compressive cord syndrome. He is feeling otherwise well, has not been sick recently and continues to be ambulatory (although decreased sensation to his feet). - History of Current Complaint Chief Complaint: EDExtremityLower Stated Complaint: SPINE PAIN, UNABLE TO WALK Time Seen by Provider: 03/17/17 11:19 Hx Obtained From: Patient, Family/Traveling Phlebotomist Onset/Duration: Worse Since - a few days ago with worsening paresthesias Severity Initially: Moderate Severity Currently: Moderate Pain Intensity: 0 Pain Scale Used: 0-10 Numeric Timing: Constant Location: Is Discrete @ - right inner calf, upper thighs anteriorly and chest Associated Signs And Symptoms: Positive: Weakness Alleviating Factor(s): Nothing Able to Bear Weight: Yes - Risk Factors Gout Risk Factors: Negative DVT Risk Factors: Negative Septic Arthritis Risk Factor: Negative - Allergies/Home Medications Allergies/Adverse Reactions: Allergies Allergy/AdvReac Type Severity Reaction Status Date / Time Shellfish Allergy Allergy Severe Anaphylatic Verified 02/07/17 21:16 Shock Atovaquone [From Mepron] Allergy Intermediate Rash And Verified 02/07/17 21:16 Itching Statins Allergy Intermediate myalgia Verified 02/07/17 21:16 PMH/Surg Hx/FS Hx/Imm Hx Previously Healthy: Yes Endocrine/Hematology History: Reports: Hx Bone Marrow Disease - MULTIPLE MYELOMA , ON CHEMO Denies: Hx Diabetes Cardiovascular History: Denies: Hx Congestive Heart Failure, Hx Hypertension Respiratory History: Reports: Other Respiratory Problems/Disorders - OCCAS SOB R /T CHEMO (POMALYST) Denies: Hx Asthma, Hx Chronic Obstructive Pulmonary Disease (COPD) GI History: Reports: Hx Diverticulosis, Hx Gall Bladder Disease, Hx Gastroesophageal Reflux Disease - HX OF , NO MEDS, Other GI Disorders - diverticulitis History: Denies: Hx Renal Disease Musculoskeletal History: Reports: Other Musculoskeletal History - Cervical sponylosis Sensory History: Reports: Hx Contacts or Glasses Denies: Hx Hearing Aid Opthamlomology History: Reports: Hx Contacts or Glasses - Cancer History Cancer Type, Location and Year: 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 Stem cell transplant (2014) Hx Chemotherapy: Yes - Surgical History Surgery Procedure, Year, and Place: tonsilectomy. stem cell transplant 2014. mj placed in cervical spine. vein removal left leg Hx Anesthesia Reactions: No - Immunization History Date of Tetanus Vaccine: unk Date of Influenza Vaccine: 01/05 Immunizations Up to Date: No Infectious Disease History: No Infectious Disease History: Denies: Hx of Known/Suspected MRSA, Traveled Outside the [place] in Last 30 Days - Family History Known Family History: Positive: Other - No- Malignant Hypothermia Family History: son - ruptured diverticulitis. FHx of prostate CA (Father) - Social History Occupation: Unemployed, Retired Lives: With Family Alcohol Use: Occasionally Alcohol Amount: WINE 1 MONTH Hx Substance Use: No Substance Use Type: Reports: None Hx Tobacco Use: No Smoking Status (MU): Never Smoked Tobacco Have You Smoked in the Last Year: No Review of Systems Constitutional: Negative Negative: Fever, Chills, Fatigue, Skin Diaphoresis Eyes: Negative Cardiovascular: Negative Respiratory: Negative Positive: no symptoms reported, see HPI. Negative: other - Denies b/B Skin: Negative Positive: Weakness, Paresthesia, Numbness Psychological: Normal All Other Systems Reviewed And Are Negative: Yes Physical Exam Triage Information Reviewed: Yes Vital Signs On Initial Exam: Initial Vitals Temp Pulse Resp BP Pulse Ox 98.8 F 82 20 152/80 100 03/17/17 11:14 03/17/17 11:14 03/17/17 11:14 03/17/17 11:14 03/17/17 11:14 Vital Signs Reviewed: Yes Appearance: Positive: Well-Appearing, No Pain Distress, Well-Nourished Skin: Positive: Warm, Skin Color Reflects Adequate Perfusion Head/Face: Positive: Normal Head/Face Inspection Eyes: Positive: EOMI, [place], Conjunctiva Clear Neck: Positive: Supple, Nontender, No Lymphadenopathy Respiratory/Lung Sounds: Positive: Clear to Auscultation, Breath Sounds Present Cardiovascular: Positive: RRR, Pulses are Symmetrical in both Upper and Lower Extremities Musculoskeletal: Positive: Strength/ROM Intact Neurological: Positive: Unable to Assess Gait, Other - paresthesias to the right medial calf, anterior thighs and chest Psychiatric: Positive: Normal Diagnostics - Vital Signs Vital Signs Temp Pulse Resp BP Pulse Ox 03/17/17 11:14 98.8 F 82 20 152/80 100 - Laboratory Result Diagrams: 03/17/17 12:13 03/17/17 12:13 Lab Statement: Any lab studies that have been ordered have been reviewed, and results considered in the medical decision making process. Lower Extremity Course/Dx - Course Course Of Treatment: Patient is sent to MRI per MD request from [facility]. IMPRESSION: 1. DIFFUSE MARROW REPLACING PROCESS INVOLVING THE VISUALIZED VERTEBRA, SACRUM AND ILIAC. BONES CONSISTENT WITH THE PATIENT'S HISTORY MULTIPLE MYELOMA WHICH APPEARS TO HAVE. PROGRESSED FROM THE PRIOR CT STUDY. NO EVIDENCE FOR EPIDURAL EXTENSION OF DISEASE. 2. MILD LUMBAR SPONDYLOSIS. Patient is given CD of the MRI results and encouraged to follow up with his PCP. As noted on the MRI, there is no evidence of compressive cord syndrome and likely paresthesias are resulting from new chemo treatment. Patient is OK with plan and discharge. - Diagnoses Provider Diagnoses: Abnormal MRI, lumbar spine Discharge - Discharge Plan Condition: Stable Disposition: HOME Referrals: Moi Seymour MD [Primary Care Provider] - Additional Instructions: Please follow up with your doctor regarding the results of your MRI
[2017-03-17 12:25] LABS: ABS Basophils 0 10^3/ul (0-0.2); ABS Eosinophils 0 10^3/ul (0-0.6); ABS Lymphocytes 0.3 10^3/ul (1.0-4.8); ABS Monocytes 1.1 10^3/ul (0-0.8); ABS Neutrophils 4.1 10^3/ul (1.5-7.7); ABS Nucleated RBC 0.01 10^3/ul; Eosinophil % 0.5 % (0-6); Hematocrit 30 % (42-52); Hemoglobin 10.4 g/dl (14.0-18.0); Lymphocyte % 4.7 % (25-47); Mean Corpuscular HGB Conc 35 g/dl (31-36); Mean Corpuscular Hemoglobin 35 pg (27-31); Mean Corpuscular Volume 102 fL (80-94); Mean Platelet Volume 9 um3 (7.4-10.4); Nucleated Red Blood Cells % 0.2; Platelet Count 136 10^3/ul (150-450); Red Blood Count 2.95 10^6/ul (4.0-5.4); Red Cell Distribution Width 18 % (10.5-15); White Blood Count 5.5 10^3/ul (3.5-10.8)
[2017-03-17 12:41] LABS: EGFR Non-African American 87.8 (>60)
[2017-03-17] MEDS ORDERED: Gadoteridol* (CONTRAST) 279.3 MG/ML 10 ML IV ONE (16:06)
--- NOTE | 2017-03-17 16:43 | RAD ---
INDICATION: Multiple myeloma evaluate for spinal cord compression. COMPARISON: Comparison is made with a prior CT of the abdomen and pelvis from December 08, 2015. TECHNIQUE: Axial and sagittal T1 and T2 and coronal T2-weighted images of the lumbar spine were obtained. In addition axial and sagittal T1-weighted images were obtained following intravenous injection of 16 ml of ProHance nonionic contrast. FINDINGS: There is decreased signal intensity on T1-weighted images and heterogeneous mixed increased and decreased signal intensity on T2-weighted images throughout the visualized lower dorsal, lumbar vertebra and visualized portion of the sacrum and iliac bones consistent with the patient's history multiple myeloma. This is more extensive than appreciated on the prior CT study which showed more discrete lytic lesions in several vertebra. There is no evidence for epidural extension of disease. There is no evidence for compression of the conus medullaris or cauda equina. The enhanced images demonstrate heterogeneous enhancement of the vertebra and sacrum. At the L3-L4 level there is a mild broad-based disc bulge and mild hypertrophic changes within the facet joints. This causes mild spinal canal narrowing and mild bilateral neural foraminal narrowing. At the L4-L5 level there is a minimal broad-based disc bulge and mild hypertrophic changes within the facet joints. There is mild spinal canal narrowing. Neural foramen appear patent on both sides. At the L5-S1 level there is a minimal broad-based disc bulge and mild hypertrophic changes within the facet joints. No spinal canal or neural foraminal narrowing is seen. IMPRESSION: 1. DIFFUSE MARROW REPLACING PROCESS INVOLVING THE VISUALIZED VERTEBRA, SACRUM AND ILIAC BONES CONSISTENT WITH THE PATIENT'S HISTORY MULTIPLE MYELOMA WHICH APPEARS TO HAVE PROGRESSED FROM THE PRIOR CT STUDY. NO EVIDENCE FOR EPIDURAL EXTENSION OF DISEASE. 2. MILD LUMBAR SPONDYLOSIS.
[2017-03-17 17:25] VITALS: BP 147/67
== END 2017-03-17 17:22 | disposition home or self-care (01) ==
LOC: ED 11:09
DX: M47.9 Spondylosis, unspecified (principal); R93.8 Abnormal findings on diagnostic imaging of other specified body structures
CPT/HCPCS: 36415; 72158; 80053; 82550; 83605; 83735; 85025; 86140; 99282; A9579

== ENCOUNTER 2017-04-22 03:04 | Inpatient (IN) | payer MEDICARE, OTHER ==
[2017-04-22 04:13] LABS: Hematocrit 27 % (42-52); Hemoglobin 9.3 g/dl (14.0-18.0); Mean Corpuscular HGB Conc 35 g/dl (31-36); Mean Corpuscular Hemoglobin 34 pg (27-31); Mean Corpuscular Volume 98 fL (80-94); Mean Platelet Volume 11 um3 (7.4-10.4); Platelet Count 9 10^3/ul (150-450); Red Blood Count 2.73 10^6/ul (4.0-5.4); Red Cell Distribution Width 15 % (10.5-15); White Blood Count 14.8 10^3/ul (3.5-10.8)
[2017-04-22 04:18] LABS: EGFR Non-African American 80.3 (>60); INR 1.02 (0.77-1.02)
[2017-04-22] MEDS ORDERED: Ondansetron INJ* 2 MG/ML VIAL IV ONE (05:23)
[2017-04-22] MEDS ORDERED: Morphine INJ* 4 MG/ML 1 ML CARPUJECT IV ONE (05:23)
[2017-04-22 05:27] LABS: Monocytes % 12 % (0-13)
[2017-04-22] MEDS ORDERED: Ondansetron INJ* 2 MG/ML VIAL IV PRN (05:59)
[2017-04-22] MEDS ORDERED: Al Hydrox/Mg Hydrox/Simet LIQ* 30 ML UDC PO PRN (05:59)
--- NOTE | 2017-04-22 07:27 | ED ---
Karthik Perez Thomas, scribed for Yandel Knight MD on 04/22/17 at 0331 . Throat Pain/Nasal Congestion - HPI Summary HPI Summary: The patient is a 66 year old male brought in by ambulance with bleeding from his mouth. He has a history of multiple myeloma. He can answer questions. 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 He is a DNR. - History of Current Complaint Chief Complaint: EDBleedingDisorder Time Seen by Provider: 04/22/17 03:15 Hx Obtained From: Patient Onset/Duration: Still Present Severity: Severe Cough: None Related History: Other (Noted In Comments) - Cancer history - Allergies/Home Medications Allergies/Adverse Reactions: Allergies Allergy/AdvReac Type Severity Reaction Status Date / Time MS Shellfish Allergy Allergy Severe Anaphylatic Verified 02/07/17 21:16 [Shellfish Allergy] Shock MS Atovaquone [From Mepron] Allergy Intermediate Rash And Verified 02/07/17 21: 16 Itching MS Statins [Statins] Allergy Intermediate myalgia Verified 02/07/17 21:16 PMH/Surg Hx/FS Hx/Imm Hx Endocrine/Hematology History: Reports: Hx Bone Marrow Disease - MULTIPLE MYELOMA , ON CHEMO Denies: Hx Diabetes Cardiovascular History: Denies: Hx Congestive Heart Failure, Hx Hypertension, Hx Pacemaker/ICD Respiratory History: Reports: Other Respiratory Problems/Disorders - OCCAS SOB R /T CHEMO (POMALYST) Denies: Hx Asthma, Hx Chronic Obstructive Pulmonary Disease (COPD) GI History: Reports: Hx Diverticulosis, Hx Gall Bladder Disease, Hx Gastroesophageal Reflux Disease - HX OF , NO MEDS, Other GI Disorders - diverticulitis History: Denies: Hx Renal Disease Musculoskeletal History: Reports: Other Musculoskeletal History - Cervical sponylosis Sensory History: Reports: Hx Contacts or Glasses Denies: Hx Hearing Aid Opthamlomology History: Reports: Hx Contacts or Glasses Psychiatric History: Denies: Hx Panic Disorder - Cancer History Cancer Type, Location and Year: 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 Stem cell transplant (2014) Hx Chemotherapy: Yes - Surgical History Surgery Procedure, Year, and Place: tonsilectomy. stem cell transplant 2014. mj placed in cervical spine. vein removal left leg Hx Anesthesia Reactions: No - Immunization History Date of Tetanus Vaccine: unk Date of Influenza Vaccine: 01/05 Infectious Disease History: No Infectious Disease History: Denies: Hx of Known/Suspected MRSA, Traveled Outside the US in Last 30 Days - Family History Known Family History: Positive: Other - No- Malignant Hypothermia Family History: son - ruptured diverticulitis. FHx of prostate CA (Father) - Social History Alcohol Use: Occasionally Alcohol Amount: WINE 1 MONTH Hx Substance Use: No Substance Use Type: Reports: None Hx Tobacco Use: No Smoking Status (MU): Never Smoked Tobacco Have You Smoked in the Last Year: No Review of Systems Negative: Fever Positive: Other - Bleeding from mouth All Other Systems Reviewed And Are Negative: Yes Physical Exam - Summary Physical Exam Summary: General: well-appearing, no pain distress Skin: warm, color reflects adequate perfusion, dry Head: normal Eyes: EOMI, [place] ENT: There is a tumor behind the left lower molar. There is clotted blood in mouth. Neck: supple, nontender Respiratory: CTA, breath sounds present Cardiovascular: RRR Abdomen: soft, nontender Bowel: present Musculoskeletal: normal, strength/ROM intact Neurological: normal, sensory/motor intact, A&O x3 Psychological: affect/mood appropriate Triage Information Reviewed: Yes Vital Signs On Initial Exam: Initial Vitals Temp Pulse Resp BP Pulse Ox 98.6 F 80 16 104/48 96 04/22/17 03:05 04/22/17 03:05 04/22/17 03:05 04/22/17 03:05 04/22/17 03:05 Vital Signs Reviewed: Yes Diagnostics - Vital Signs Vital Signs Temp Pulse Resp BP Pulse Ox 04/22/17 03:05 98.6 F 80 16 104/48 96 - Laboratory Lab Results: Lab Results 04/22/17 04/22/17 04/22/17 Range/Units 03:15 03:15 03:15 WBC (3.5-10.8) 10^3/ul RBC (4.0-5.4) 10^6/ul Hgb (14.0-18.0) g/dl Hct (42-52) % MCV (80-94) fL MCH (27-31) pg MCHC (31-36) g/dl RDW (10.5-15) % Plt Count (150-450) 10^3/ul MPV (7.4-10.4) um3 Neut % (Auto) Lymph % (Auto) Worth % (Auto) Eos % (Auto) Baso % (Auto) Absolute Neuts (auto) Absolute Lymphs (auto) Absolute Monos (auto) Absolute Eos (auto) Absolute Basos (auto) Absolute Nucleated RBC Immature Gran % (0-9) % Neutrophils % (38-83) % Band Neutrophils % (0-8) % Lymphocytes % (25-47) % Reactive Lymphs % (0-6) % Monocytes % (0-13) % Eosinophils % (0-6) % Basophils % (0-2) % Metamyelocytes % (0-2) % Myelocytes % (0-1) % Nucleated RBC % Abs Neuts (Manual) (1.5-7.7) 10^3/ul Abs Monocytes (Manual) (0-0.8) 10^3/ul Absolute Eos (Manual) (0-0.6) 10^3/ul Abs Basophils (Manual) (0-0.2) 10^3/ul Normal RBC Morphology (Normal) Hem Pathologist Commnt INR (Anticoag Therapy) 1.02 (0.77-1.02) APTT 25.1 L (26.0-36.3) seconds Sodium 136 (133-145) mmol/L Potassium 4.0 (3.5-5.0) mmol/L Chloride 95 L (101-111) mmol/L Carbon Dioxide 33 H (22-32) mmol/L Anion Gap 8 (2-11) mmol/L BUN 29 H (6-24) mg/dL Creatinine 0.94 (0.67-1.17) mg/dL Est GFR ( Amer) 103.3 (>60) Est GFR (Non-Af Amer) 80.3 (>60) BUN/Creatinine Ratio 30.9 H (8-20) Glucose 103 H (70-100) mg/dL Calcium 12.6 H (8.6-10.3) mg/dL Total Bilirubin 0.50 (0.2-1.0) mg/dL AST 62 H (13-39) U/L ALT 34 (7-52) U/L Alkaline Phosphatase 200 H (34-104) U/L C-Reactive Protein 70.43 H (< 5.00) mg/L Total Protein 6.0 L (6.4-8.9) g/dL Albumin 3.2 (3.2-5.2) g/dL Globulin 2.8 (2-4) g/dL Albumin/Globulin Ratio 1.1 (1-3) Monoscreen Blood Type A Positive Antibody Screen Negative 04/22/17 Range/Units 03:15 WBC 14.8 H (3.5-10.8) 10^3/ul RBC 2.73 L (4.0-5.4) 10^6/ul Hgb 9.3 L (14.0-18.0) g/dl Hct 27 L (42-52) % MCV 98 H (80-94) fL MCH 34 H (27-31) pg MCHC 35 (31-36) g/dl RDW 15 (10.5-15) % Plt Count 9 L* (150-450) 10^3/ul MPV 11 H (7.4-10.4) um3 Neut % (Auto) Not Reportable Lymph % (Auto) Not Reportable Worth % (Auto) Not Reportable Eos % (Auto) Not Reportable Baso % (Auto) Not Reportable Absolute Neuts (auto) Not Reportable Absolute Lymphs (auto) Not Reportable Absolute Monos (auto) Not Reportable Absolute Eos (auto) Not Reportable Absolute Basos (auto) Not Reportable Absolute Nucleated RBC Not Reportable Immature Gran % 7 (0-9) % Neutrophils % 26 L (38-83) % Band Neutrophils % 4 (0-8) % Lymphocytes % 11 L (25-47) % Reactive Lymphs % 44 H D (0-6) % Monocytes % 12 (0-13) % Eosinophils % 0 (0-6) % Basophils % 0 (0-2) % Metamyelocytes % 2 (0-2) % Myelocytes % 1 (0-1) % Nucleated RBC % Not Reportable Abs Neuts (Manual) 3.8 (1.5-7.7) 10^3/ul Abs Monocytes (Manual) 1.8 H (0-0.8) 10^3/ul Absolute Eos (Manual) 0 (0-0.6) 10^3/ul Abs Basophils (Manual) 0 (0-0.2) 10^3/ul Normal RBC Morphology Normal (Normal) Hem Pathologist Commnt Pending INR (Anticoag Therapy) (0.77-1.02) APTT (26.0-36.3) seconds Sodium (133-145) mmol/L Potassium (3.5-5.0) mmol/L Chloride (101-111) mmol/L Carbon Dioxide (22-32) mmol/L Anion Gap (2-11) mmol/L BUN (6-24) mg/dL Creatinine (0.67-1.17) mg/dL Est GFR ( Amer) (>60) Est GFR (Non-Af Amer) (>60) BUN/Creatinine Ratio (8-20) Glucose (70-100) mg/dL Calcium (8.6-10.3) mg/dL Total Bilirubin (0.2-1.0) mg/dL AST (13-39) U/L ALT (7-52) U/L Alkaline Phosphatase (34-104) U/L C-Reactive Protein (< 5.00) mg/L Total Protein (6.4-8.9) g/dL Albumin (3.2-5.2) g/dL Globulin (2-4) g/dL Albumin/Globulin Ratio (1-3) Monoscreen Cancelled Blood Type Antibody Screen Result Diagrams: 04/22/17 03:15 04/22/17 03:15 Lab Statement: Any lab studies that have been ordered have been reviewed, and results considered in the medical decision making process. EENT Course/Dx - Course Course Of Treatment: ADMIT HOSPITALIST. CRITICAL CARE TIME LESS THAN 30 MINUTES - Diagnoses Provider Diagnoses: Thrombocytopenia - Provider Notifications Discussed Care Of Patient With: Leah Moise Time Discussed With Above Provider: 05:21 Instructed by Provider To: Admit As Inpatient Discharge - Discharge Plan Condition: Critical Disposition: ADMITTED TO [facility] documentation as recorded by the Karthik gonzalez Thomas accurately reflects the service I personally performed and the decisions made by , Yandel Knight MD.
--- NOTE | 2017-04-22 08:18 | CONSULT ---
Consultation - Reason for Consultation Reason for Consultation: end stage multiple myeloma Ordering Provider: Leah Moise Chief Complaint: mouth bleeding History of Present Illness: 66 yo M w end stage multiple myeloma here with bleeding from his gums. Chilango has a complicated and lengthy course for his multiple myeloma. He is a relatively poor historian but Allergies/Medications Allergies/Adverse Reactions: Allergies Allergy/AdvReac Type Severity Reaction Status Date / Time MS Shellfish Allergy Allergy Severe Anaphylatic Verified 02/07/17 21:16 [Shellfish Allergy] Shock MS Atovaquone [From Mepron] Allergy Intermediate Rash And Verified 02/07/17 21: 16 Itching MS Statins [Statins] Allergy Intermediate myalgia Verified 02/07/17 21:16
--- NOTE | 2017-04-22 08:51 | PN ---
Progress Note - Progress Note Date of Service: 04/22/17 SOAP: Subjective: patient known to our service for an initial visit last Wednesday with Dr. Anna. He has a very complicated myeloma with multiple lines of salvage therapy including an autologous BMT. Most recently he has cycled through several daratumumab combinations and was transitioned to dexamethasone/cytoxan/etoposide /cisplatin with the hopes of going on clinical trial at [facility]. He was recently admitted to [facility] with cord compression in the thoracic spine complicated by hemiparesis and bowel and bladder incontinence. He had RT with minimal recovery. He was discharged on the 08 of April and had another cycle of DCEP. He has continued to have a very poor performance status. He saw Dr. Anna on Wednesday to discuss further treatment options at which time he was noted to have circulating plasma cells on smear (plasma cell leukemia). He was coming back today to make a final decision but came to the ER with epistaxis and weakness. He has a performance status of 4 and is very (appropriately) interested in hospice. He is noted to have marked thrombocytopenia (plts 9) on lovenox, and marked hypercalemia. They are not interested in being aggressive and treating this. Objective: 123/56 85 18 98.0 ill appearing dry mouth with bleeding rhonchorous bs tachy soft nt +Bs hoffman in place no le edema 2+/5 bilateral le strength lethargic Bacitracin (Bacitracin Ointment*) 1 applic TOPICAL BID ABRIL Lorazepam (Ativan Inj*) 0.5 mg IV PUSH Q4H PRN PRN Reason: ANXIETY Morphine Sulfate (Morphine Inj (Syringe)*) 4 mg IV Q2HR PRN PRN Reason: PAIN Ondansetron HCl (Zofran Inj*) 4 mg IV Q4H PRN PRN Reason: NAUSEA/VOMITING Assessment: 66 yo M w end stage MM and very poor performance status, most appropriate for hospice at this time. -comfort measures only -will not treat hypercalcemia or thrombocytopenia -hopeful for residence, will get hospice consult 60 mins spent, >50% in face to face counsultation
[2017-04-22] MEDS: Morphine INJ* 2 MG/ML 1 ML CARPUJECT IV PRN ×3 (11:13→21:38)
[2017-04-22] MEDS: Bacitracin OINTMENT* 0.5% 0.5 oz TUBE TOPICAL SCH ×2 (11:36→21:44)
--- NOTE | 2017-04-22 15:44 | HP ---
CC: Moi Saavedra MD * HISTORY AND PHYSICAL: DATE OF ADMISSION: 04/22/17 TIME OF EVALUATION: 0600. PRIMARY CARE PHYSICIAN: oMi Saavedar MD. CHIEF COMPLAINT: Coughing up blood. 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 They were up in [facility] in the beginning of March for radiation treatment. He is now paralyzed from the waist down and losing strength in the hands and upper body. He has had difficulty eating solids over the past few days and most recently just maintaining on liquid diet. He has had a wet cough chronically, normally just at night, yesterday was throughout the day, and he woke up coughing up blood and the bleeding did not seem to stop. He states he has significant amount of back pain that comes and goes where he has a known lesion there. He states the short of breath, nausea, and some intermittent abdominal pain. They were scheduled to see Dr. Anna today on the , to discuss if there is any more treatment options. They have been followed at [facility] and at [facility]. The patient understands how debilitated he is. He does not seem to be interested in any further treatment. We discussed comfort measures and he is interested in that. The states that she has been taking care of him at home 24 hours a day using the [employer]ick lift and lifting the bed with wood at home to make it safe, but she feels that it is really not a safe environment and her son lives with them, but he also works during the day, so it is really mostly her 24 hours a day and she is worried about his safety and cared for him with this rapid decline. He lost a significant amount of weight as well with limited ability to tolerate any p.o. 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 His platelets are found to be 9 and 2 bags of platelets have been ordered. The patient was also given 4 mg of Zofran and 4 mg of Morphine. PAST MEDICAL HISTORY: 1. Multiple myeloma diagnosed in March 2012, status post stem cell transplant that is failed after 5 months. He has been on multiple rounds of chemo. He has been getting most of his care at [facility] and [facility]. He has met Dr. Anna once. 2. History of decubitus ulcer. 3. Paralysis of his lower extremities and upper extremity weakness secondary to spinal cord lesions from his multiple myeloma. 4. History of perforated diverticulitis status post ileostomy. MEDICATIONS: His did not bring the med list. She did state he takes 2 mg of dexamethasone in the morning. ALLERGIES: SHELLFISH - anaphylaxis; ATOVAQUONE and STATINS. FAMILY HISTORY: Reviewed and noncontributory. SOCIAL HISTORY: The patient lives with his Es, who is his healthcare proxy as mentioned takes care of him 24x7. No history of tobacco; occasional wine. We discussed the MOLST form. We are going to fill out comfort care, DNR/ DNI in the emergency room. REVIEW OF SYSTEMS: A 14-point review of systems as mentioned in the HPI, otherwise negative. PHYSICAL EXAMINATION GENERAL: Frail male in some mild distress, with persistent wet cough and bloody sputum. VITAL SIGNS: Temp 98.6, pulse rate is 82, respiratory rate is 16, oxygen saturation 98% on room air, blood pressure 101/56. HEENT: Head: Normocephalic. Pupils equal and reactive. Oropharynx: Mucous membranes are dry, significant amount of blood oozing from his mouth and he has a lesion on his left lower tongue that is friable and oozing blood. RESPIRATORY: Diminished breath sounds. No increased work of breathing, faint rhonchi bilaterally. CARDIAC: Regular rate and rhythm. ABDOMEN: Soft, nondistended. Ostomy, there is no surrounding erythema or drainage. EXTREMITIES: No clubbing, cyanosis, +1 DPs. NEUROLOGIC: Alert and oriented, significant weakness in his upper extremities, paralysis of lower extremities. DIAGNOSTIC STUDIES/LAB DATA: White count 14.8, hemoglobin 9.3, hematocrit 27, platelets 9. INR is 1.02. Sodium 136, potassium 4, chloride 95, bicarb 33, BUN 29, creatinine 0.94, calcium 12.6, alk phos 200. 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 The patient is interested in pursuing comfort measures, understands he likely will not tolerate any further treatments. They would like to speak with the oncologist to understand more options for him as they did have an appointment with Dr. Anna today. I discussed home with hospice, the feels that she needs more help and does not feel the home is a safe environment for him any more. She is interested in pursuing in a residence. I did put in a referral to the residents and sent an email to Dr. Eric notifying her if there are any options for him to go to the residents. In the meantime, I am going to continue him on morphine. We will order Ativan and Zofran as needed and comfort care, unrestricted diet, and wait for his 2 bags of platelets to be given. I have signed out to the oncology service, who I presume will take over his care this morning. DVT prophylaxis in contraindicated in a comfort care patient and actively bleeding and code status as mentioned DNR/DNI, comfort care measures. PATIENT TIME: Greater than 60 minutes spent doing the history and physical, more than half the time spent in direct patient contact. [id number]/CPS #: [id number] ANNIE
[2017-04-23] MEDS: Morphine INJ* 2 MG/ML 1 ML CARPUJECT IV PRN ×7 (00:01→12:55)
[2017-04-23] MEDS: LORazepam INJ* 2 MG/ML 1 ML VIAL IV PUSH PRN ×4 (03:57→17:38)
[2017-04-23] MEDS: Bacitracin OINTMENT* 0.5% 0.5 oz TUBE TOPICAL SCH (08:25)
--- NOTE | 2017-04-23 08:36 | PN ---
Progress Note - Progress Note Date of Service: 04/23/17 SOAP: Subjective: []Not responsive. Bacitracin (Bacitracin Ointment*) 1 applic TOPICAL BID ABRIL Last Admin: 04/23/17 08:25 Dose: Not Given Lorazepam (Ativan Inj*) 0.5 mg IV PUSH Q4H PRN PRN Reason: ANXIETY Last Admin: 04/23/17 08:25 Dose: 0.5 mg Morphine Sulfate (Morphine Inj (Syringe)*) 4 mg IV Q2HR PRN PRN Reason: PAIN Last Admin: 04/23/17 08:24 Dose: 4 mg Ondansetron HCl (Zofran Inj*) 4 mg IV Q4H PRN PRN Reason: NAUSEA/VOMITING Objective: [] Vital Signs Temp Pulse Resp BP Pulse Ox 0 F 0 18 00/0 0 04/22/17 07:57 04/22/17 07:57 04/23/17 08:25 04/22/17 07:57 04/22/17 07:57 HEENT - mucosa bleeding, dry, pale agonal breathing Tachy RRR +BS, ND ext cool to touch Assessment: []66 year old with PCL and acute decompensation. Expect him to in the next day. Plan: []1. Will hold on transfer, not stable. 2. Comfort care and will continue Morphine and Lorazepam
[2017-04-23] MEDS ORDERED: Morphine PCA ADULT* 5 MG/ML 30 ML PCA SCH (15:00)
[2017-04-23 15:26] VITALS: BP 110/58
== END 2017-04-23 20:20 | disposition expired | DRG 813 ==
LOC: ED 03:04 → MED 05:59
PROVIDERS: ADMIT Pediatrics; ATTEND Internal Medicine Hematology & Oncology
DX: D69.6 Thrombocytopenia, unspecified (principal); C90.00 Multiple myeloma not having achieved remission; Z94.84 Stem cells transplant status; G83.89 Other specified paralytic syndromes; E83.52 Hypercalcemia; Z66 Do not resuscitate; Z51.5 Encounter for palliative care; Z91.013 Allergy to seafood; Z88.8 Allergy status to other drugs, medicaments and biological substances
CPT/HCPCS: 36415; 80053; 82232; 82784; 83883; 84155; 84165; 85025; 85060; 85610; 85730; 86140; 86850; 86900; 86901; 88184; 88188; 99232; A9270-GY; J2060; J2270; J2405